=== PATIENT | female | born 1945 | race Caucasian/White ===

== ENCOUNTER → 2018-05-14 | Outpatient (CLI) | payer OTHER ==
[~2018-05-14] MED LIST: ARC10 PO; ATV/1 PO; BUPR300T43 PO; CLOP1TAB15 PO; CRG625 PO; CYCL10TA6 PO; FLUO40CA8 PO; GABA-113 PO; HYDR-4079 PO; INSU3INJ3 SQ; LATA0.5S OP; LEVO75TA5 PO; LPT40 OR; NTRGSL/4 UT; NVLGI/PEN SQ; PANT40TA2 PO; PROAIR INH
[2018-05-14 15:44] LABS: ALBUMIN 3.9 gm/dl (3.4-5.0); BLOOD UREA NITROGEN 22 mg/dl (7-18); CALCIUM 8.7 mg/dl (8.5-10.1); CARBON DIOXIDE 24 mmol/L (21-32); CREATININE 1.62 mg/dl (0.60-1.20); GLUCOSE 224 mg/dl (70-99); PHOSPHORUS 3.2 mg/dl (2.5-4.9); POTASSIUM 3.9 mmol/L (3.5-5.1); SODIUM 136 mmol/L (136-145)
[2018-05-19 13:29] LABS: ANA SCREEN TC 249X POSITIVE (NEGATIVE); COMPLEMENT C4** TC 44982E 32 MG/DL (15-57)
[2018-05-20 10:14] LABS: ANA TITER > OR = 1:1280 TITER (<1:40)
== END | disposition home or self-care (01) ==
LOC: C.LAB1850 13:27
PROVIDERS: ATTEND Internal Medicine Nephrology
DX: N17.9 Acute kidney failure, unspecified (principal); E55.9 Vitamin D deficiency, unspecified

== ENCOUNTER 2018-12-21 14:21 | Inpatient (IN) ==
[2018-12-21] MEDS ORDERED: HEPARIN 25000 UNIT/500 ML D5W IV ONE (14:28)
[2018-12-21] MEDS ORDERED: NITROGLYCERIN SL 0.4 MG/TAB TAB SL STA (15:27)
[2018-12-21] MEDS ORDERED: ACETAMINOPHEN 325 MG TAB PO PRN (15:27)
[2018-12-21] MEDS ORDERED: DEXTROSE 50% 50 ML SYRINGE IV PRN (15:27)
[2018-12-21] MEDS ORDERED: GLUCOSE 40% GEL 15 GM TUBE PO PRN (15:27)
[2018-12-21] MEDS ORDERED: GLUCAGON FOR INJ 1 MG VIAL SQ PRN (15:27)
[2018-12-21] MEDS ORDERED: GLUCOSE 10 TABS/TUBE PO PRN (15:27)
[2018-12-21] MEDS ORDERED: CARBOHYDRATES FOR HYPOGLYCEMIA PO PRN (15:27)
[2018-12-21] MEDS ORDERED: PHARMACY GLYCEMIC MGMT CONSULT PRN (15:40)
--- NOTE | 2018-12-21 15:44 | History & Physical Report ---
Date of Service December 21, 2018 Assessment & Plan (1) Chest pain: Has been ongoing for several weeks without clear exacerbating or ameliorating factors. Did not attempt to take nitroglycerin at home. - Continue aspirin, Plavix, and statin - Continue heparin gtt until next troponin. - If negative, can stop heparin gtt - Cardiology consult given her significant CAD history - BP is currently only 100/60 with HR in the 50 range - Hold beta-merlin at this time (2) Dizziness: Episode of palpitations, dizziness, and a fall when chest pain was severe on 12/20. Concern for arrhythmia given her known CAD. - Telemetry - Cardiology consult as above (3) CAD (coronary artery disease): S/p 6 caths with 3 stents. Last in 2015. - Continue ASA, Plavix, statin - Plan as above (4) Diabetes: Per , baseline blood sugars are ~200. - Continue long-acting with slight reduction for any need for NPO - Sliding scale insulin - Glycemic pharmacy consult - A1c in the AM - Continue gabapentin (5) Hypothyroidism: TSH was 2.7 in 07/2017. No signs/symptoms of hypo-/hyperthyroidism. - Continue home Synthroid 100 mcg (6) Anxiety: No current anxiety symptoms. - Continue home meds (7) Alzheimer disease: Mild per patient. - Continue home donepezil (8) DVT prophylaxis: On heparin gtt for unstable angina - If stopped, will consider Lovenox for DVT ppx History of Present Illness Primary Care Provider: Rani Curtis 73yo F w/ hx CAD (s/p 3 stents, last in 2015) who presents with history consi stent with unstable angina. Per patient, has been having chest pain which she describes as a heaviness in the right substernal area with radiation up to the jaw. With the chest pain she reports nausea and diaphoresis. The pain has been intermittent over the last few weeks. Each time it comes on and lasts for approximately 1 hour and gradually fades away. She denies any exacerbating or ameliorating factors, having forgotten that she has nitroglycerin she has not taken any in an attempt to relieve the pain. She denies that exertion worsens the pain or that rest improves the pain. On Thursday afternoon, she reports sudden onset of a particularly severe episode of the chest pain, rating it at 10/10. She also felt lightheaded with this chest pain, and when she stood up to check her blood pressure she got so dizzy that she fell down. She reports striking her head, but denies loss of consciousness. She reports possible palpitations around this time as well, though she is not certain. At present she rates her chest pain is a 34/10. She denies fevers, chills, abdominal pain, nausea, vomiting, diaphoresis, or other symptoms at this time. Allergies Allergy/AdvReac Type Severity Reaction Status Date / Time Cephalosporins Allergy Intermediate RASH Verified 12/21/18 15:36 paroxetine Allergy Intermediate RASH Verified 12/21/18 15:36 Penicillins Allergy Intermediate RASH Verified 12/21/18 15:36 latex Allergy Mild SWELLING Verified 05/07/16 08:23 alendronate sodium Allergy Unknown RASH Verified 05/07/16 08:23 Benzodiazepines Allergy Unknown ATIVAN IS Verified 05/07/16 08:23 OK guaifenesin Allergy Unknown Unknown Verified 12/21/18 15:36 imipramine Allergy Unknown Unknown Verified 12/21/18 15:36 Macrolide Antibiotics Allergy Unknown ` Verified 05/07/16 08:23 phenylephrine Allergy Unknown Unknown Verified 12/21/18 15:36 phenylpropanolamine Allergy Unknown Unknown Verified 12/21/18 15:36 protirelin Allergy Unknown Unknown Verified 12/21/18 15:36 trazodone Allergy Unknown NIGHTMARES Verified 05/07/16 08:23 valsartan Allergy Unknown Unknown Verified 12/21/18 15:36 adhesive AdvReac Intermediate blisters Verified 12/21/18 15:36 on skin Sulfa (Sulfonamide AdvReac Mild VOMITING Verified 05/07/16 08:23 Antibiotics) Home Medications Home Medications Medication Instructions Recorded Confirmed Type LORAZEPAM (ATIVAN) 1 mg PO TID PRN #0 tab 11/08/12 History Gabapentin (Neurontin) 300 mg PO TID #0 cap 10/08/15 History Nitroglycerin (Nitrostat) 0.4 mg UT PRN #0 btl 10/08/15 History BUPROPION HCL (BUPROPION HCL XL) 1 tab PO HS #0 tab 05/07/16 History CYCLOBENZAPRINE HCL (FLEXERIL) 10 mg PO TID PRN #0 tab 05/07/16 History Clopidogrel (Plavix) 75 mg PO QAM #0 tab 05/07/16 History Donepezil HCl 10 mg PO DAILY #0 08/20/17 History FLUOXETINE HCL (PROZAC) 1 cap PO DAILY 30 Days #30 cap 08/20/17 History Hydrocodone/Acetaminophen 1 tab PO Q6 PRN #0 tab 08/20/17 History 10MG/325MG ([place] 10MG/325MG) Insulin Aspart (NOVOLOG FLEXPEN) 10 unit SUBCUT TIDM #0 08/20/17 History Insulin Detemir (Levemir Flextouch) 28 unit SUBCUT HS #0 08/20/17 History LATANOPROST (XALATAN 0.005% OPH 1 drp OPHTHALMIC (EYE) HS #2.5 ml 08/20/17 History NASIR) LEVOTHYROXINE SODIUM 100 mcg PO DAILY #0 08/20/17 History ATORVASTATIN (LIPITOR) 80 mg PO DAILY 12/21/18 History aspirin [Aspirin Low Dose] 81 mg PO DAILY 12/21/18 12/21/18 History Past Med/Surg History Medical History Alzheimer disease CAD (coronary artery disease) Chronic back pain Depression Diabetes Hypothyroidism Surgical History Stented coronary artery Family History Father Heart disease Brother Heart disease Mother Heart disease Social History Preferred Language: Malaysian Communication Ability: Effective Aircraft Pneudraulic Systems Mechanic Required: No Beliefs That Will Affect Care: None Current Living Situation: Spouse Other Information That Helps Us Care for You: No Feels Safe at Home: Yes Safety Concerns: Feels Safe At This Time Smoking Status: Never smoker Hx Alcohol Use: No Hx Substance Use: No Review of Systems Constitutional: + fatigue and + weakness; no fever, no chills and no sweats Eyes: no diplopia Ear, Nose, Mouth, Throat: no ear trauma, no nasal discharge and no dental pain Respiratory: no cough, no chest congestion and no dyspnea Cardiovascular: + chest pain; no dyspnea on exertion, no palpitations and no syncope Gastrointestinal: + nausea; no abdominal pain, no belching, no vomiting, no constipation, no diarrhea/loose stools, no blood in stools and no melena Musculoskeletal: no back pain, no joint pain and no muscle weakness Integumentary: no rash, no skin ulcer and no erythema Neurologic: + unsteadiness, + generalized weakness and + dizziness; no loss of sensation, no numbness and no paresthesia Psychiatric: no depression and no anxiety Endocrine: no fatigue, no polydipsia and no polyphagia Physical Exam Vital Signs (Past 24 Hours): Last Vital Signs Temp 36.8 C 12/21/18 14:52 Pulse 53 L 12/21/18 14:52 Resp 16 12/21/18 14:52 BP 105/57 L 12/21/18 14:52 Pulse Ox 93 12/21/18 14:52 Constitutional: WD/WN, vitals as above Eyes: EOM intact bilaterally; no conjunctival abnormality ENMT: external ear and nose normal, oropharynx normal Neck: trachea midline, no thyromegaly normal visual inspection Respiratory: normal respiratory effort, lungs clear to auscultation no respiratory distress Cardiovascular: RRR, no murmur, no edema Gastrointestinal (Abdomen): Inspection/Auscultation: abdomen normal to inspection; abdomen not distended Musculoskeletal: no cyanosis or clubbing, extremities motor strength 5/5 Skin: no rashes, warm and dry Neurologic: moves all extremities and awake Psychiatric: Orientation: alert, oriented to person and cooperative
--- NOTE | 2018-12-21 16:39 | Cardiology Consultation ---
Date of Consultation December 21, 2018 Assessment & Plan (1) Chest pain: The patient's history of chest pain over the last several weeks is atypical for classic angina pectoris. Two troponins at [facility] were negative. A 3rd enzyme is pending at the time of this dictation. Review of her EKGs note left ventricle hypertrophy with repolarization changes. Agree with discontinuation of heparin if her pending troponin is negative. The patient does carry history of chronic atypical chest discomfort. (2) CAD (coronary artery disease): The patient had 3 drug-eluting stents placed in the right coronary artery at the time of an inferior myocardial infarction in September 2015. Her coronary disease has been quiescent on her current medical regimen since that time. (3) HTN (hypertension): She demonstrates adequate control of her blood pressure at this time. An echocardiogram performed in December 2015 noted mild left ventricular hypertrophy. This corresponds with her EKG findings. History of Present Illness Attending Physician: Ashwin Marie History of Present Illness Mrs. Ridley is a 73-year-old female transferred from the [facility] earlier today with a chest pain syndrome. This consultation was ordered to assist in her management. Of note, the patient is well known to me from the outpatient setting. Patient was in her usual state of health until approximately 2-3 weeks ago. She began to experience right-sided chest discomfort. She explains that it started as a "stabbing discomfort which then became a pressure like sensation. The patient explains that her discomfort would radiate across her chest to the left side. She had concurrent sweating of the palms. Patient explains that her symptoms would last for several hours. It always begins when she is at rest and will resolve spontaneously. Is been occurring at least once every day over this time frame. Yesterday, the patient became dizzy tripped over chair, and injured her forehead. She then presented to the [facility] for further care. Fortunately, 2 sets of troponins were negative. EKG showed sinus rhythm with left ventricle hypertrophy repolarization changes. The patient's cardiac history began in September 2015 when she presented with an inferior myocardial infarction. She had 3 stents placed in the proximal mid RCA. She was restudied in November 2015 and found to have patent stents. She does carry history of an atypical chest pain syndrome which has resulted in numerous hospitalizations. Currently, patient resting comfortably in bed without complaints. Past medical and surgical history 1. Coronary artery disease-see above 2. RCA PASTOR times 23 September 2015 3. Hypertension 4. Hypercholesterolemia 5. Atypical chest pain syndrome 6. Diabetes mellitus 7. Diabetic neuropathy 8. GERD 9. 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 Left breast carcinoma-age 34 12. Bilateral mastectomies 13. Cholecystectomy 14. Appendectomy 15. Hysterectomy 16. 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 Allergies Allergy/AdvReac Type Severity Reaction Status Date / Time Cephalosporins Allergy Intermediate RASH Verified 12/21/18 15:36 paroxetine Allergy Intermediate RASH Verified 12/21/18 15:36 Penicillins Allergy Intermediate RASH Verified 12/21/18 15:36 latex Allergy Mild SWELLING Verified 05/07/16 08:23 alendronate sodium Allergy Unknown RASH Verified 05/07/16 08:23 Benzodiazepines Allergy Unknown ATIVAN IS Verified 05/07/16 08:23 OK guaifenesin Allergy Unknown Unknown Verified 12/21/18 15:36 imipramine Allergy Unknown Unknown Verified 12/21/18 15:36 Macrolide Antibiotics Allergy Unknown ` Verified 05/07/16 08:23 phenylephrine Allergy Unknown Unknown Verified 12/21/18 15:36 phenylpropanolamine Allergy Unknown Unknown Verified 12/21/18 15:36 protirelin Allergy Unknown Unknown Verified 12/21/18 15:36 trazodone Allergy Unknown NIGHTMARES Verified 05/07/16 08:23 valsartan Allergy Unknown Unknown Verified 12/21/18 15:36 adhesive AdvReac Intermediate blisters Verified 12/21/18 15:36 on skin Sulfa (Sulfonamide AdvReac Mild VOMITING Verified 05/07/16 08:23 Antibiotics) Home Medications Home Medications Medication Instructions Recorded Confirmed Type LORAZEPAM (ATIVAN) 1 mg PO TID PRN #0 tab 11/08/12 History Gabapentin (Neurontin) 300 mg PO TID #0 cap 10/08/15 History Nitroglycerin (Nitrostat) 0.4 mg UT PRN #0 btl 10/08/15 History BUPROPION HCL (BUPROPION HCL XL) 1 tab PO HS #0 tab 05/07/16 History CYCLOBENZAPRINE HCL (FLEXERIL) 10 mg PO TID PRN #0 tab 05/07/16 History Clopidogrel (Plavix) 75 mg PO QAM #0 tab 05/07/16 History Donepezil HCl 10 mg PO DAILY #0 08/20/17 History FLUOXETINE HCL (PROZAC) 1 cap PO DAILY 30 Days #30 cap 08/20/17 History Hydrocodone/Acetaminophen 1 tab PO Q6 PRN #0 tab 08/20/17 History 10MG/325MG ([place] 10MG/325MG) Insulin Aspart (NOVOLOG FLEXPEN) 10 unit SUBCUT TIDM #0 08/20/17 History Insulin Detemir (Levemir Flextouch) 28 unit SUBCUT HS #0 08/20/17 History LATANOPROST (XALATAN 0.005% OPH 1 drp OPHTHALMIC (EYE) HS #2.5 ml 08/20/17 History NASIR) LEVOTHYROXINE SODIUM 100 mcg PO DAILY #0 08/20/17 History ATORVASTATIN (LIPITOR) 80 mg PO DAILY 12/21/18 History aspirin [Aspirin Low Dose] 81 mg PO DAILY 12/21/18 12/21/18 History Patient History Medical History Alzheimer disease CAD (coronary artery disease) Chronic back pain Depression Diabetes Hypothyroidism Surgical History Stented coronary artery Family History Father Heart disease Brother Heart disease Mother Heart disease Social History Preferred Language: Syriac Communication Ability: Effective Surveillance Specialist Required: No Beliefs That Will Affect Care: None Current Living Situation: Spouse Other Information That Helps Us Care for You: No Feels Safe at Home: Yes Safety Concerns: Feels Safe At This Time Smoking Status: Never smoker Hx Alcohol Use: No Hx Substance Use: No Physical Exam Vital Signs (Past 24 Hours): Last Vital Signs Temp 36.8 C 12/21/18 14:52 Pulse 53 L 12/21/18 14:52 Resp 16 12/21/18 14:52 BP 105/57 L 12/21/18 14:52 Pulse Ox 93 12/21/18 14:52 Physical Exam: In general this is a well-developed well-nourished white female in no acute distress. HEENT exam is negative. Neck is supple with full carotid upstrokes. There are no carotid bruits. Jugular venous pressure is flat at 90. There is no thyromegaly. Cardiovascular exam reveals a regular rhythm with a normal S1 and S2. No S3, S4, or murmurs are noted. Lungs are clear without rales, rhonchi, or wheezes. Abdomen is soft and nontender without bruits. Extremities reveal intact radial artery and posterior tibial pulses bilaterally. There is no peripheral edema. Results & Data Laboratory Results Laboratory studies are pending at the time of this dictation. Diagnostic Findings Review of the EKGs done at [facility] notes sinus rhythm and left ventricular hypertrophy with repolarization changes.
[2018-12-21 16:43] LABS: Partial Thromboplastin Ratio 1.8
[2018-12-21 16:47] LABS: Partial Thromboplastin Time 48.6 Seconds (21.0-31.0)
[2018-12-21] MEDS: Heparin IV Standard *NO* Bolus IV SCH ×3 (16:57→18:51)
[2018-12-21] MEDS: INSULIN ASPART 100 UNITS/ML 3 ML PEN SC SCH ×2 (17:20→20:55)
[2018-12-21] MEDS ORDERED: CYCLOBENZAPRINE HCL 10 MG TAB PO PRN (19:15)
[2018-12-21] MEDS: HYDROCODONE/ACETAMINOPHEN 10/325 TAB PO PRN (19:52)
[2018-12-21] MEDS: GABAPENTIN 300 MG CAP PO SCH (19:52)
[2018-12-21] MEDS: BuPROPion XL 300 MG TABCR PO SCH (19:52)
[2018-12-21] MEDS: LATANOPROST 0.005% OP SOLN 2.5 ML BTL OP SCH (19:53)
[2018-12-21] MEDS: INSULIN GLARGINE SOLOSTAR 100 UNITS/ML 3 ML PEN SC SCH (20:54)
[2018-12-21] MEDS ORDERED: INSULIN DETEMIR FLEXPEN/FLEX TOUCH 100 UNITS/ML 3ML SC SCH (21:00)
[2018-12-21] MEDS: NITROGLYCERIN SL 0.4 MG/TAB TAB SL PRN ×2 (23:05→23:10)
[2018-12-21] MEDS ORDERED: NITROGLYCERIN SL 0.4 MG/TAB TAB ONE (23:06)
[2018-12-21 23:47] LABS: Basophils # (auto) 0.03 K/uL (0-0.2); Basophils % (auto) 0.3 %; Eosinophils # (auto) 0.21 K/uL (0-0.5); Hematocrit (blood only) 31.8 % (37-47); Hemoglobin 10.4 g/dL (12.0-16.0); Immature Granulocytes # (auto) 0.01 K/uL (0.00-0.02); Immature Granulocytes % (auto) 0.1 %; Lymphocytes # (auto) 3.72 K/uL (1.2-3.4); Lymphocytes % (auto) 35.5 %; Mean Corpuscular Volume 90.6 fL (80-100); Mean Platelet Volume 8.8 fL (7.4-10.4); Monocytes # (auto) 0.63 K/uL (0.11-0.59); Neutrophils # (auto) 5.88 K/uL (1.4-6.5); Neutrophils % (auto) 56.1 %; Platelet Count 250 K/uL (130-400); RDW Coefficient of Variation 12.8 % (11.5-14.5); RDW Standard Deviation 42.3 fL (36.4-46.3); Red Blood Count 3.51 M/uL (4.2-5.4); White Blood Count 10.48 K/uL (4.8-10.8)
[2018-12-21] MEDS ORDERED: ONDANSETRON INJ 2 MG/ML 2 ML VIAL IV PRN (23:58)
[2018-12-22 00:02] LABS: BUN Creatinine Ratio 17.9 (10-20); Blood Urea Nitrogen 31 mg/dl (7-18); Calcium 8.2 mg/dl (8.5-10.1); Carbon Dioxide 28 mmol/L (21-32); Chloride 108 mmol/L (98-107); Creatinine Clr Calc Pharmacy 25.9 ml/min; Est GFR (African American) 34.1; Est GFR (Non-African American) 29.4; Glucose 102 mg/dl (70-99); Magnesium 2.1 mg/dl (1.8-2.4); Potassium 4.4 mmol/L (3.5-5.1); Sodium 140 mmol/L (136-145)
[2018-12-22 00:07] LABS: Phosphorus 4.2 mg/dl (2.5-4.9); Troponin I < 0.015 ng/ml (0-0.045)
[2018-12-22] MEDS ORDERED: NSS + 20MEQ KCL 20 MEQ/1,000 ML BAG IV SCH (00:15)
[2018-12-22 00:20] LABS: Mean Corpuscular Hgb Conc 32.7 g/dL (32-36)
[2018-12-22 00:38] LABS: INR 1.1 (0.9-1.1); Partial Thromboplastin Ratio 0.9; Partial Thromboplastin Time 25.7 Seconds (21.0-31.0); Prothrombin Time 10.9 Seconds (9.0-12.0)
[2018-12-22] MEDS ORDERED: Heparin IV Low Dose *NO* Bolus IV SCH (00:59)
[2018-12-22] MEDS ORDERED: HEPARIN SODIUM/DEXTROSE 25,000 UNITS/500 ML BAG IV SCH (01:30)
[2018-12-22] MEDS: HYDROCODONE/ACETAMINOPHEN 10/325 TAB PO PRN ×2 (03:39→16:40)
[2018-12-22] MEDS: LEVOTHYROXINE SODIUM 100 MCG TABLET PO SCH (05:20)
[2018-12-22 07:53] LABS: Hematocrit (blood only) 32.7 % (37-47); Hemoglobin 10.6 g/dL (12.0-16.0); Mean Corpuscular Hgb Conc 32.4 g/dL (32-36); Mean Corpuscular Volume 91.1 fL (80-100); Mean Platelet Volume 9.1 fL (7.4-10.4); Platelet Count 238 K/uL (130-400); RDW Coefficient of Variation 12.7 % (11.5-14.5); RDW Standard Deviation 42.5 fL (36.4-46.3); Red Blood Count 3.59 M/uL (4.2-5.4); White Blood Count 9.08 K/uL (4.8-10.8)
[2018-12-22] MEDS: ASPIRIN 81 MG ECTAB PO SCH (08:00)
[2018-12-22] MEDS: INSULIN ASPART 100 UNITS/ML 3 ML PEN SC SCH ×4 (08:00→20:53)
[2018-12-22] MEDS: ATORVASTATIN 40 MG TAB PO SCH (08:01)
[2018-12-22] MEDS: GABAPENTIN 300 MG CAP PO SCH ×3 (08:01→22:08)
[2018-12-22] MEDS: PARoxetine HCl 20 MG TAB PO SCH (08:01)
[2018-12-22] MEDS: CLOPIDOGREL BISULFATE 75 MG TAB PO SCH (08:02)
[2018-12-22 08:03] LABS: Partial Thromboplastin Ratio 1.3; Partial Thromboplastin Time 35.9 Seconds (21.0-31.0)
[2018-12-22 08:19] LABS: Estimated Average Glucose 143 mg/dl; Hemoglobin A1C 6.6 % (4.5-5.6)
[2018-12-22] MEDS ORDERED: HEPARIN IV BOLUS 4,000 UNITS in SYRINGE 0 ML IV ONE (08:30)
[2018-12-22 08:42] LABS: BUN Creatinine Ratio 19.5 (10-20); Calcium 7.9 mg/dl (8.5-10.1); Creatinine Clr Calc Pharmacy 29.9 ml/min; Est GFR (African American) 40.5; Magnesium 2.3 mg/dl (1.8-2.4)
--- NOTE | 2018-12-22 08:49 | Pharmacy Report ---
Pharmacy Glycemic Short Note 2 - Date of Service December 22, 2018 - Glycemic Short BSG Results (Last 24 hours): 12/21/18 12/21/18 12/21/18 15:54 20:36 23:34 Glucose 102 H POC Glucose 117 H 111 H 12/22/18 12/22/18 07:05 07:30 Glucose 137 H POC Glucose 136 H OUTPATIENT ANTIDIABETIC REGIMEN: * Levemir 28 units Q HS * Novolog 10 units w/ meals * A1c = 6.6% 12/22/18 The patient is currently receiving: * Basal insulin: Lantus 10 units x 1 last PM * Correctional Insulin: Novolog Correction per scale ACHS Goal Range: Low 100 mg/dL - High 140 mg/dL Correction Factor: 30 mg/dL/unit * Prandial insulin: Per carb ratio of 1 unit per 10 grams CHO consumed ASSESSMENT: * Patient admitted last evening for possible ACS * A reduced dose of Lantus was given last evening due to concerns pt may be NPO for procedure today. Patient currently has T2DM diet ordered. * Pt had requested use of Lantus this admission rather than the Levemir she is ordered as out-pt. She had told the [facility] last evening "Levemir did not work" * Fasting BSG 136 with 10 units Lantus on board. Will increase Lantus dose to ~ 80% of home dosage as a diet is ordered. Will add a parameter too this order to allow for half-dose if pt will be NPO for procedure * Novolog CF and CR are appropriate starting points. Will continue the same today and monitor BSG pattern PLAN FOR INPATIENT GLYCEMIC CONTROL: * Basal insulin * Lantus SQ HS per the followin units Q HS if not NPO, 10 units Q HS if NPO for upcoming procedure * Bolus insulin * NovoLog per scale ACHS or Q6hrs while NPO * Goal Range: Low 110 mg/dL - High 140 mg/dL * Correction Factor: 30 mg/dL/unit * Nutritional / Prandial insulin per carb ratio of 1 unit per 10 grams CHO consumed PLAN FOR DISCHARGE: * recent A1c shows good control with out-pt regimen. would be reasonable to resume her home regimen on discharge.
[2018-12-22] MEDS ORDERED: DONEPEZIL HCL 10 MG TAB PO SCH (09:00)
--- NOTE | 2018-12-22 12:41 | Cardiology Progress Note ---
Date of Service December 22, 2018 Assessment & Plan (1) Chest pain: The patient's description of chest discomfort is not cardiac in origin. She has had 2 undetectable troponin levels at our institution, and 2-troponins at an outside facility. Her EKG notes left ventricular hypertrophy with repo larization changes. Discussed with Dr. Marie. The heparin will be discontinued and she will undergo an echocardiogram and CT scan of the chest with contrast. (2) CAD (coronary artery disease): The patient had 3 drug-eluting stents placed in the right coronary artery at the time of an inferior myocardial infarction in September 2015. Her coronary disease has been quiescent on her current medical regimen. (3) HTN (hypertension): Adequate control on current regimen. Subjective The patient is currently resting comfortably without complaints. She did have an episode of chest discomfort overnight and her heparin was restarted. Troponin done concurrently was undetectable. Physical Exam Vital Signs (Past 24 Hours): Last Vital Signs Temp 36.7 C 12/22/18 10:51 Pulse 66 12/22/18 10:51 Resp 16 12/22/18 10:51 BP 124/66 12/22/18 10:51 Pulse Ox 92 12/22/18 10:51 Physical Exam: In general this is a well-developed well-nourished white female in no acute distress. HEENT exam is negative. Neck is supple with full carotid upstrokes. There are no carotid bruits. Jugular venous pressure is flat at 90. There is no thyromegaly. Cardiovascular exam reveals a regular rhythm with a normal S1 and S2. No S3, S4, or murmurs are noted. Lungs are clear without rales, rhonchi, or wheezes. Abdomen is soft and nontender without bruits. Extremities reveal intact radial artery and posterior tibial pulses bilaterally. There is no peripheral edema. Results & Data Laboratory Results Laboratory Results - last 24 hr 12/21/18 12/21/18 12/21/18 14:58 15:46 15:46 WBC RBC Hgb Hct MCV MCH MCHC RDW Std Deviation RDW Coeff of Matilda Plt Count MPV Immature Gran % (Auto) Neut % (Auto) Lymph % (Auto) [place] % (Auto) Eos % (Auto) Baso % (Auto) Immature Gran # (Auto) Neut # (Auto) Lymph # (Auto) [place] # (Auto) Eos # (Auto) Baso # (Auto) PT INR APTT 48.6 H* PTT Ratio 1.8 Sodium Potassium Chloride Carbon Dioxide Anion Gap BUN Creatinine Est Cr Clr Drug Dosing Est GFR ( Amer) Est GFR (Non-Af Amer) BUN/Creatinine Ratio Glucose POC Glucose Estimat Average Glucose Hemoglobin A1c Calcium Phosphorus Magnesium Troponin I < 0.015 Hepatitis C Ab Screen Neg 12/21/18 12/21/18 12/21/18 15:54 20:36 23:34 WBC 10.48 RBC 3.51 L Hgb 10.4 L Hct 31.8 L MCV 90.6 MCH 29.6 MCHC 32.7 RDW Std Deviation 42.3 RDW Coeff of Mtailda 12.8 Plt Count 250 MPV 8.8 Immature Gran % (Auto) 0.1 Neut % (Auto) 56.1 Lymph % (Auto) 35.5 [place] % (Auto) 6.0 Eos % (Auto) 2.0 Baso % (Auto) 0.3 Immature Gran # (Auto) 0.01 Neut # (Auto) 5.88 Lymph # (Auto) 3.72 H [place] # (Auto) 0.63 H Eos # (Auto) 0.21 Baso # (Auto) 0.03 PT INR APTT PTT Ratio Sodium Potassium Chloride Carbon Dioxide Anion Gap BUN Creatinine Est Cr Clr Drug Dosing Est GFR ( Amer) Est GFR (Non-Af Amer) BUN/Creatinine Ratio Glucose POC Glucose 117 H 111 H Estimat Average Glucose Hemoglobin A1c Calcium Phosphorus Magnesium Troponin I Hepatitis C Ab Screen 12/21/18 12/22/18 12/22/18 23:34 00:14 07:05 WBC RBC Hgb Hct MCV MCH MCHC RDW Std Deviation RDW Coeff of Matilda Plt Count MPV Immature Gran % (Auto) Neut % (Auto) Lymph % (Auto) [place] % (Auto) Eos % (Auto) Baso % (Auto) Immature Gran # (Auto) Neut # (Auto) Lymph # (Auto) [place] # (Auto) Eos # (Auto) Baso # (Auto) PT 10.9 INR 1.1 APTT 25.7 PTT Ratio 0.9 Sodium 140 Potassium 4.4 Chloride 108 H Carbon Dioxide 28 Anion Gap 4.0 BUN 31 H Creatinine 1.72 H Est Cr Clr Drug Dosing 25.9 Est GFR ( Amer) 34.1 Est GFR (Non-Af Amer) 29.4 BUN/Creatinine Ratio 17.9 Glucose 102 H POC Glucose 136 H Estimat Average Glucose Hemoglobin A1c Calcium 8.2 L Phosphorus 4.2 Magnesium 2.1 Troponin I < 0.015 Hepatitis C Ab Screen 12/22/18 12/22/18 12/22/18 07:30 07:30 07:30 WBC 9.08 RBC 3.59 L Hgb 10.6 L Hct 32.7 L MCV 91.1 MCH 29.5 MCHC 32.4 RDW Std Deviation 42.5 RDW Coeff of Matilda 12.7 Plt Count 238 MPV 9.1 Immature Gran % (Auto) Neut % (Auto) Lymph % (Auto) [place] % (Auto) Eos % (Auto) Baso % (Auto) Immature Gran # (Auto) Neut # (Auto) Lymph # (Auto) [place] # (Auto) Eos # (Auto) Baso # (Auto) PT INR APTT PTT Ratio Sodium 140 Potassium 5.0 Chloride 110 H Carbon Dioxide 26 Anion Gap 4.0 BUN 29 H Creatinine 1.49 H Est Cr Clr Drug Dosing 29.9 Est GFR ( Amer) 40.5 Est GFR (Non-Af Amer) 35.0 BUN/Creatinine Ratio 19.5 Glucose 137 H POC Glucose Estimat Average Glucose 143 Hemoglobin A1c 6.6 H Calcium 7.9 L Phosphorus Magnesium 2.3 Troponin I Hepatitis C Ab Screen 12/22/18 12/22/18 07:30 10:55 WBC RBC Hgb Hct MCV MCH MCHC RDW Std Deviation RDW Coeff of Matilda Plt Count MPV Immature Gran % (Auto) Neut % (Auto) Lymph % (Auto) [place] % (Auto) Eos % (Auto) Baso % (Auto) Immature Gran # (Auto) Neut # (Auto) Lymph # (Auto) [place] # (Auto) Eos # (Auto) Baso # (Auto) PT INR APTT 35.9 H PTT Ratio 1.3 Sodium Potassium Chloride Carbon Dioxide Anion Gap BUN Creatinine Est Cr Clr Drug Dosing Est GFR ( Amer) Est GFR (Non-Af Amer) BUN/Creatinine Ratio Glucose POC Glucose 196 H Estimat Average Glucose Hemoglobin A1c Calcium Phosphorus Magnesium Troponin I Hepatitis C Ab Screen Diagnostic Findings EKG shows normal sinus rhythm and left ventricular hypertrophy with repolarization changes. 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
[2018-12-22 15:46] LABS: BUN Creatinine Ratio 18.4 (10-20); Blood Urea Nitrogen 25 mg/dl (7-18); C Reactive Protein < 0.29 mg/dl (0-0.29); Calcium 8.1 mg/dl (8.5-10.1); Carbon Dioxide 26 mmol/L (21-32); Chloride 115 mmol/L (98-107); Creatinine Clr Calc Pharmacy 32.8 ml/min; Est GFR (African American) 45.3; Est GFR (Non-African American) 39.1; Glucose 67 mg/dl (70-99); Potassium 4.7 mmol/L (3.5-5.1); Sodium 144 mmol/L (136-145)
[2018-12-22 15:48] LABS: D Dimer 350 ug/L FEU (0-500)
[2018-12-22 16:11] LABS: Partial Thromboplastin Ratio 1.8
[2018-12-22 16:33] LABS: Partial Thromboplastin Time 49.1 Seconds (21.0-31.0)
[2018-12-22] MEDS ORDERED: OPTIRAY 320 125ml IV PRN (18:03)
--- NOTE | 2018-12-22 18:27 | CT Scan Report ---
CHEST CTA for PULMONARY ARTERIES CT DOSE: 390.10 mGy.cm HISTORY: R sided chest pain; eval for PE TECHNIQUE: Multiaxial CT images of the chest were performed following the intravenous administration of contrast to evaluate the pulmonary arteries. Maximal intensity projection images were also obtaine d. A dose lowering technique was utilized adhering to the principles of ALARA. COMPARISON STUDY: Outside hospital chest CT 12/20/2017. FINDINGS: There is high-grade stenosis versus focal occlusion of the proximal left subclavian artery. This is suboptimally evaluated due to the artifact at this location. However, there is reconstitutio n of flow at the level of the left vertebral artery. Therefore, this raises the possibility of a subc lavian steal. Normal caliber thoracic aorta with no evidence for dissection. Dense coronary artery ca lcifications. The heart is mildly enlarged. Trace left pleural effusion. The majority of the bilatera l lower lobe subsegmental pulmonary arteries are nondiagnostic due to the motion artifact. Otherwise, the remaining pulmonary arteries show no filling defects to suggest pulmonary embolus. Partially vis ualized posterior fusion hardware within the lower thoracic spine. No suspicious lytic or blastic oss eous lesions. The visualized liver and spleen are unremarkable. No significant mediastinal or hilar l ymphadenopathy. No pneumothorax. The central airways are patent. Mild emphysema. A 7 mm groundglass d ensity within the right upper lobe posteriorly on image 149. This is new from the prior study and may represent mild dependent change or a small focus of inflammatory/infectious change. Bilateral lower lobe linear densities likely represent subsegmental atelectasis.. IMPRESSION: 1. No evidence for pulmonary blood. 2. Bibasilar linear densities favor subsegmental atelectasis. As also a 7 mm groundglass density with in the right upper lobe posteriorly which may represent mild dependent change or a small focus of inf lammatory/infectious change. This is new from the prior study. 3. Trace left pleural effusion. 4. There is high-grade stenosis versus focal occlusion of the proximal left subclavian artery. This i s suboptimally evaluated due to the artifact at this location. However, there is reconstitution of fl ow at the level of the left vertebral artery. Therefore, this raises the possibility of a subclavian steal. Electronically signed by: Elias Haro M.D. 12/22/2018 6:25 PM
[2018-12-22] MEDS: ACETYLCYSTEINE 600 MG CAP PO SCH ×2 (18:58→20:50)
[2018-12-22] MEDS: BuPROPion XL 300 MG TABCR PO SCH (20:49)
[2018-12-22] MEDS: LATANOPROST 0.005% OP SOLN 2.5 ML BTL OP SCH (20:50)
--- NOTE | 2018-12-22 20:52 | Hospitalist Progress Note ---
Date of Service December 22, 2018 Assessment & Plan (1) Chest pain: Atypical chest pain x 48 hours. Numerous troponins all negative despite the duration of her pain which argues against CAD/ischemic pain. Seen by cardiology, Dr. Peacock, and he too feels this is not cardiac pain. After hydration today we obtained CTA chest -- no PEs seen. No large area of pneumonia on right. No acute rib fractures. Subclavian artery stenosis seen but unlikely the cause of right-sided symptoms. Uncertain of exact etiology of pain but favor musculoskeletal cause -- perhaps referred pain from back given her significant back pain? No evidence of unstable angina or PE -- stop heparin drip. Sed rate and crp both normal. Present on Admission?: Yes (2) Dizziness: May have been medication related as apparently she took a muscle relaxer at some point earlier in the week. Vertebral-basilar insufficiency possible due to her subclavian artery stenosis but felt to be less likely. Her dizziness has improved/resolved either way. Present on Admission?: Yes (3) CAD (coronary artery disease): Troponins all negative. EKGs with chronic ST changes. Awaiting echo. Chest pain unlikely to be coronary-related. See discussion above. Appreciate cardiology consult. Cont asa, plavix and statin. Uncertain why she is not on beta merlin. Present on Admission?: Yes (4) DM type 2 (diabetes mellitus, type 2): glycemic control adequate at this time Present on Admission?: Yes (5) HTN (hypertension): she does not appear to be on meds at home for this. if additional BP control is needed -- would add BB or [place]. Present on Admission?: Yes (6) HLD (hyperlipidemia): cont statin Present on Admission?: Yes (7) Hypothyroidism: cont synthroid TSH at outside hospital wnl Present on Admission?: Yes (8) GERD (gastroesophageal reflux disease): no symptoms at this time chest pain very unlikely to be GI in origin Present on Admission?: Yes (9) Anxiety: cont ativan prn Present on Admission?: Yes (10) Back pain: ordered K-pad heating cont her usual narcotics prn poor NSAID candidate because of CKD Present on Admission?: Yes (11) Subclavian artery stenosis, left: ordered dopplers for more information. consult vascular surgery. cont statin, asa, plavix. is chronic left arm pain due to subclavian steal? referred pain from c-spine? (12) Chronic kidney disease, stage 3a: Gave additional hydration today along with mucomyst x 4 doses for renal protection in setting of CTA chest. BMP in am. Cr this afternoon 1.3. Present on Admission?: Yes (13) DVT prophylaxis: was on systemic heparin but stopping such if she remains hospitalized beyond tomorrow then add heparin SC will order PT, OT evals Subjective patient continues to have intermittent right sided chest discomfort. she gets the pain at rest. nitro helps the pain. her other main complaint is that of back pain -- upper and lower portions of back. takes chronic narcotics at home for this. denies any dyspnea. ?some pleuritic component to pain? mentions she had dizziness in the midst of taking a muscle relaxer at home a few days ago. denies dizziness or presyncopal spells on daily basis. does get pain in left upper arm with activities. Constitutional: no fever Respiratory: + cough (chronic) Cardiovascular: as per Subjective / HPI and + chest pain; no radiating jaw, neck or arm pain, no orthopnea, no paroxysmal nocturnal dyspnea and no edema Gastrointestinal: no abdominal pain, no nausea and no vomiting Physical Exam Vital Signs (Past 24 Hours): Last Vital Signs Temp 36.8 C 12/22/18 19:32 Pulse 71 12/22/18 19:32 Resp 18 12/22/18 19:32 BP 153/61 H 12/22/18 19:32 Pulse Ox 90 12/22/18 19:32 Constitutional: well developed, well nourished and average body habitus; no acute distress and not ill appearing ENMT: external ear and nose normal, oropharynx normal Respiratory: normal respiratory effort, lungs clear to auscultation Cardiovascular: Rate/Rhythm: regular rate and regular rhythm Heart Sounds: normal S1 and normal S2; no murmur Vessels: posterior tibial pulses present and dorsalis pedis pulses present; no JVD Extremities: no edema radial pulses - both 1+ or less b/l Chest (Breasts): Additional Comments: no reproducible chest wall pain in any location Gastrointestinal (Abdomen): normal bowel sounds, soft, nontender, no hepatosplenomegaly Psychiatric: A+Ox3, euthymic affect Results & Data Laboratory Results Laboratory Results - last 24 hr 12/21/18 12/21/18 12/22/18 23:34 23:34 00:14 WBC 10.48 RBC 3.51 L Hgb 10.4 L Hct 31.8 L MCV 90.6 MCH 29.6 MCHC 32.7 RDW Std Deviation 42.3 RDW Coeff of Matilda 12.8 Plt Count 250 MPV 8.8 Immature Gran % (Auto) 0.1 Neut % (Auto) 56.1 Lymph % (Auto) 35.5 Powell % (Auto) 6.0 Eos % (Auto) 2.0 Baso % (Auto) 0.3 Immature Gran # (Auto) 0.01 Neut # (Auto) 5.88 Lymph # (Auto) 3.72 H Powell # (Auto) 0.63 H Eos # (Auto) 0.21 Baso # (Auto) 0.03 ESR PT 10.9 INR 1.1 APTT 25.7 PTT Ratio 0.9 D-Dimer Sodium 140 Potassium 4.4 Chloride 108 H Carbon Dioxide 28 Anion Gap 4.0 BUN 31 H Creatinine 1.72 H Est Cr Clr Drug Dosing 25.9 Est GFR ( Amer) 34.1 Est GFR (Non-Af Amer) 29.4 BUN/Creatinine Ratio 17.9 Glucose 102 H POC Glucose Estimat Average Glucose Hemoglobin A1c Calcium 8.2 L Phosphorus 4.2 Magnesium 2.1 Troponin I < 0.015 C-Reactive Protein 12/22/18 12/22/18 12/22/18 07:05 07:30 07:30 WBC 9.08 RBC 3.59 L Hgb 10.6 L Hct 32.7 L MCV 91.1 MCH 29.5 MCHC 32.4 RDW Std Deviation 42.5 RDW Coeff of Matilda 12.7 Plt Count 238 MPV 9.1 Immature Gran % (Auto) Neut % (Auto) Lymph % (Auto) [place] % (Auto) Eos % (Auto) Baso % (Auto) Immature Gran # (Auto) Neut # (Auto) Lymph # (Auto) [place] # (Auto) Eos # (Auto) Baso # (Auto) ESR PT INR APTT PTT Ratio D-Dimer Sodium 140 Potassium 5.0 Chloride 110 H Carbon Dioxide 26 Anion Gap 4.0 BUN 29 H Creatinine 1.49 H Est Cr Clr Drug Dosing 29.9 Est GFR ( Amer) 40.5 Est GFR (Non-Af Amer) 35.0 BUN/Creatinine Ratio 19.5 Glucose 137 H POC Glucose 136 H Estimat Average Glucose Hemoglobin A1c Calcium 7.9 L Phosphorus Magnesium 2.3 Troponin I C-Reactive Protein 12/22/18 12/22/18 12/22/18 07:30 07:30 10:55 WBC RBC Hgb Hct MCV MCH MCHC RDW Std Deviation RDW Coeff of Matilda Plt Count MPV Immature Gran % (Auto) Neut % (Auto) Lymph % (Auto) Powell % (Auto) Eos % (Auto) Baso % (Auto) Immature Gran # (Auto) Neut # (Auto) Lymph # (Auto) Powell # (Auto) Eos # (Auto) Baso # (Auto) ESR PT INR APTT 35.9 H PTT Ratio 1.3 D-Dimer Sodium Potassium Chloride Carbon Dioxide Anion Gap BUN Creatinine Est Cr Clr Drug Dosing Est GFR ( Amer) Est GFR (Non-Af Amer) BUN/Creatinine Ratio Glucose POC Glucose 196 H Estimat Average Glucose 143 Hemoglobin A1c 6.6 H Calcium Phosphorus Magnesium Troponin I C-Reactive Protein 12/22/18 12/22/18 12/22/18 15:12 15:12 15:13 WBC RBC Hgb Hct MCV MCH MCHC RDW Std Deviation RDW Coeff of Matilda Plt Count MPV Immature Gran % (Auto) Neut % (Auto) Lymph % (Auto) [place] % (Auto) Eos % (Auto) Baso % (Auto) Immature Gran # (Auto) Neut # (Auto) Lymph # (Auto) [place] # (Auto) Eos # (Auto) Baso # (Auto) ESR 23 H PT INR APTT 49.1 H* PTT Ratio 1.8 D-Dimer 350 Sodium Potassium Chloride Carbon Dioxide Anion Gap BUN Creatinine Est Cr Clr Drug Dosing Est GFR ( Amer) Est GFR (Non-Af Amer) BUN/Creatinine Ratio Glucose POC Glucose Estimat Average Glucose Hemoglobin A1c Calcium Phosphorus Magnesium Troponin I C-Reactive Protein 12/22/18 12/22/18 12/22/18 15:13 15:13 16:10 WBC RBC Hgb Hct MCV MCH MCHC RDW Std Deviation RDW Coeff of Matilda Plt Count MPV Immature Gran % (Auto) Neut % (Auto) Lymph % (Auto) [place] % (Auto) Eos % (Auto) Baso % (Auto) Immature Gran # (Auto) Neut # (Auto) Lymph # (Auto) [place] # (Auto) Eos # (Auto) Baso # (Auto) ESR PT INR APTT PTT Ratio D-Dimer Sodium 144 Potassium 4.7 Chloride 115 H Carbon Dioxide 26 Anion Gap 3.0 BUN 25 H Creatinine 1.36 H Est Cr Clr Drug Dosing 32.8 Est GFR ( Amer) 45.3 Est GFR (Non-Af Amer) 39.1 BUN/Creatinine Ratio 18.4 Glucose 67 L POC Glucose 71 Estimat Average Glucose Hemoglobin A1c Calcium 8.1 L Phosphorus Magnesium Troponin I C-Reactive Protein Cancelled < 0.29 12/22/18 20:03 WBC RBC Hgb Hct MCV MCH MCHC RDW Std Deviation RDW Coeff of Matilda Plt Count MPV Immature Gran % (Auto) Neut % (Auto) Lymph % (Auto) [place] % (Auto) Eos % (Auto) Baso % (Auto) Immature Gran # (Auto) Neut # (Auto) Lymph # (Auto) [place] # (Auto) Eos # (Auto) Baso # (Auto) ESR PT INR APTT PTT Ratio D-Dimer Sodium Potassium Chloride Carbon Dioxide Anion Gap BUN Creatinine Est Cr Clr Drug Dosing Est GFR ( Amer) Est GFR (Non-Af Amer) BUN/Creatinine Ratio Glucose POC Glucose 152 H Estimat Average Glucose Hemoglobin A1c Calcium Phosphorus Magnesium Troponin I C-Reactive Protein (1) Chest pain Chest pain type: unspecified Qualified Code(s): R07.9 - Chest pain, unspecified (2) CAD (coronary artery disease) Coronary Disease-Associated Artery/Lesion type: [place] artery [place] vs. transplanted heart: [place] heart Associated angina: without angina Qualified Code(s): I25.10 - Atherosclerotic heart disease of [place] coronary artery without angina pectoris (3) DM type 2 (diabetes mellitus, type 2) Diabetes mellitus assisted insulin use: with terminal superintendent use Diabetes mellitus complication status: with kidney complications Diabetes mellitus complication detail: with chronic kidney disease Chronic kidney disease stage: stage 3 (moderate) Qualified Code(s): E11.22 - Type 2 diabetes mellitus with diabetic chronic kidney disease; N18.3 - Chronic kidney disease, stage 3 (moderate); Z79.4 - group home (current) use of insulin (4) HTN (hypertension) Hypertension type: essential hypertension Qualified Code(s): I10 - Essential (primary) hypertension (5) HLD (hyperlipidemia) Hyperlipidemia type: mixed hyperlipidemia Qualified Code(s): E78.2 - Mixed hyperlipidemia (6) Hypothyroidism Hypothyroidism type: acquired Qualified Code(s): E03.9 - Hypothyroidism, unspecified (7) GERD (gastroesophageal reflux disease) Esophagitis presence: esophagitis presence not specified Qualified Code(s): K21.9 - Gastro-esophageal reflux disease without esophagitis (8) Back pain Back pain location: thoracic back pain Chronicity: chronic Back pain laterality: midline Qualified Code(s): M54.6 - Pain in thoracic spine; G89.29 - Other chronic pain
[2018-12-22] MEDS: INSULIN GLARGINE SOLOSTAR 100 UNITS/ML 3 ML PEN SC SCH (20:53)
[2018-12-22] MEDS: LORazepam 1 MG TAB PO PRN (22:07)
[2018-12-22] MEDS: DONEPEZIL HCL 10 MG TAB PO SCH (22:08)
--- NOTE | 2018-12-22 22:22 | Ultrasound Report ---
CAROTID ARTERY ULTRASOUND CLINICAL HISTORY: ?subclavian steal; left-sided subclavian stenosis COMPARISON STUDY: Chest CT December 22, 2018. TECHNIQUE: Real-time, grayscale, and color Doppler sonography of the carotid and vertebral arteries w as performed. Images were viewed in the transverse and longitudinal planes. FINDINGS: There is extensive atherosclerotic plaque present within the proximal right internal carotid artery. Velocity measurements are listed below. COMMON CAROTID PEAK SYSTOLIC VELOCITY (CM/S): RIGHT 71 LEFT 115 ICA PEAK SYSTOLIC VELOCITY (CM/S): RIGHT 422 LEFT 193 Systolic ratio between the right internal to common carotid artery is elevated. Antegrade flow is seen in the vertebral arteries. Velocity within the proximal left subclavian artery was mildly elevated at 200 cm/s The external carotid arteries are patent however the peak systolic v elocity within the right external carotid artery is markedly elevated at 508 cm/s. Peak systolic [place] within the left external carotid artery is moderately elevated at 255 cm/s. Blood pressures were not obtained in this patient due to IV. IMPRESSION: 1. Findings suggestive of severe stenosis within the proximal right internal carotid artery and possi neelam the distal right common carotid artery as well. 2. Findings suggestive of 50-69% stenosis of the proximal left internal carotid artery. 3. Antegrade flow within the bilateral vertebral arteries without sonographic evidence of subclavian steal. 4. Stenoses of the bilateral external carotid arteries, more severe on the right. 5. Mildly elevated velocity within the proximal left subclavian artery. Electronically signed by: Marcelino Prieto M.D. 12/22/2018 10:21 PM
[2018-12-23] MEDS: HYDROCODONE/ACETAMINOPHEN 10/325 TAB PO PRN ×3 (00:14→20:11)
[2018-12-23] MEDS: LEVOTHYROXINE SODIUM 100 MCG TABLET PO SCH (05:48)
[2018-12-23 06:14] LABS: BUN Creatinine Ratio 18.5 (10-20); Calcium 8.3 mg/dl (8.5-10.1); Creatinine Clr Calc Pharmacy 38.4 ml/min; Est GFR (African American) 54.9; Est GFR (Non-African American) 47.3; Potassium 4.5 mmol/L (3.5-5.1)
[2018-12-23] MEDS: ATORVASTATIN 40 MG TAB PO SCH (08:43)
[2018-12-23] MEDS: GABAPENTIN 300 MG CAP PO SCH ×3 (08:44→20:13)
[2018-12-23] MEDS: CLOPIDOGREL BISULFATE 75 MG TAB PO SCH (08:44)
[2018-12-23] MEDS: PARoxetine HCl 20 MG TAB PO SCH (08:44)
[2018-12-23] MEDS: ACETYLCYSTEINE 600 MG CAP PO SCH ×2 (08:45→20:13)
[2018-12-23] MEDS: ASPIRIN 81 MG ECTAB PO SCH (08:45)
[2018-12-23] MEDS: INSULIN ASPART 100 UNITS/ML 3 ML PEN SC SCH ×4 (08:46→20:14)
--- NOTE | 2018-12-23 13:09 | Consultation ---
Date of Consultation December 23, 2018 Assessment & Plan (1) Subclavian artery stenosis, left: Other than the CTA finding which may be an artifact, this patient does not have any symptoms of a significant left subclavian artery stenosis. She does have asymptomatic carotid disease for which we will see her again in 6 months for follow-up carotid ultrasound. Thank you very much for letting us participate in the care of this patient. History of Present Illness Reason for Consultation: Left subclavian artery stenosis Attending Physician: Melissa Ashby MD History of Present Illness This is a 73-year-old female who home. She had one episode of lightheadedness resulting in a fall of her chair. During her hospital stay here she had a CTA of her chest which showed a suggestion of a left subclavian artery stenoses. She denies any claudication of her upper extremities. She does have pain in her left shoulder with movement and overhead. She is right-handed. She is able to do things with her left hand without difficulty. She denies any claudication when walking. She denies any symptoms of cerebrovascular insufficiency. She also denies any symptoms of vertebrobasilar symptoms. Allergies Allergy/AdvReac Type Severity Reaction Status Date / Time Cephalosporins Allergy Intermediate RASH Verified 12/21/18 15:36 paroxetine Allergy Intermediate RASH Verified 12/21/18 15:36 Penicillins Allergy Intermediate RASH Verified 12/21/18 15:36 latex Allergy Mild SWELLING Verified 05/07/16 08:23 alendronate sodium Allergy Unknown RASH Verified 05/07/16 08:23 Benzodiazepines Allergy Unknown ATIVAN IS Verified 05/07/16 08:23 OK guaifenesin Allergy Unknown Unknown Verified 12/21/18 15:36 imipramine Allergy Unknown Unknown Verified 12/21/18 15:36 Macrolide Antibiotics Allergy Unknown ` Verified 05/07/16 08:23 phenylephrine Allergy Unknown Unknown Verified 12/21/18 15:36 phenylpropanolamine Allergy Unknown Unknown Verified 12/21/18 15:36 protirelin Allergy Unknown Unknown Verified 12/21/18 15:36 trazodone Allergy Unknown NIGHTMARES Verified 05/07/16 08:23 valsartan Allergy Unknown Unknown Verified 12/21/18 15:36 orange Allergy Verified 12/22/18 08:52 strawberry Allergy Verified 12/22/18 08:52 adhesive AdvReac Intermediate blisters Verified 12/21/18 15:36 on skin Sulfa (Sulfonamide AdvReac Mild VOMITING Verified 05/07/16 08:23 Antibiotics) Home Medications Home Medications Medication Instructions Recorded Confirmed Type LORAZEPAM (ATIVAN) 1 mg PO TID PRN #0 tab 11/08/12 History Gabapentin (Neurontin) 300 mg PO TID #0 cap 10/08/15 History Nitroglycerin (Nitrostat) 0.4 mg UT PRN #0 btl 10/08/15 History BUPROPION HCL (BUPROPION HCL XL) 1 tab PO HS #0 tab 05/07/16 History CYCLOBENZAPRINE HCL (FLEXERIL) 10 mg PO TID PRN #0 tab 05/07/16 History Clopidogrel (Plavix) 75 mg PO QAM #0 tab 05/07/16 History Donepezil HCl 10 mg PO DAILY #0 08/20/17 History Hydrocodone/Acetaminophen 1 tab PO Q6 PRN #0 tab 08/20/17 History 10MG/325MG ([place] 10MG/325MG) Insulin Aspart (NOVOLOG FLEXPEN) 10 unit SUBCUT TIDM #0 08/20/17 History Insulin Detemir (Levemir Flextouch) 28 unit SUBCUT HS #0 08/20/17 History LATANOPROST (XALATAN 0.005% OPH 1 drp OPHTHALMIC (EYE) HS #2.5 ml 08/20/17 History NASIR) LEVOTHYROXINE SODIUM 100 mcg PO DAILY #0 08/20/17 History ATORVASTATIN (LIPITOR) 80 mg PO DAILY 12/21/18 History aspirin [Aspirin Low Dose] 81 mg PO DAILY 12/21/18 12/21/18 History paroxetine HCl [Paxil] 20 mg PO DAILY 12/21/18 12/21/18 History Patient History Medical History Alzheimer disease CAD (coronary artery disease) Chronic back pain Depression Diabetes Hypothyroidism Surgical History Stented coronary artery Family History Father Heart disease Brother Heart disease Mother Heart disease Social History Preferred Language: Tajik Communication Ability: Effective Assistant Corporate Secretary Required: No Beliefs That Will Affect Care: None Current Living Situation: Spouse Other Information That Helps Us Care for You: No Feels Safe at Home: Yes Safety Concerns: Feels Safe At This Time Smoking Status: Never smoker Hx Alcohol Use: No Hx Substance Use: No Review of Systems Her only complaints of the HPI was fatigue nausea and occasional generalized weakness. Physical Exam Vital Signs (Past 24 Hours): Last Vital Signs Temp 36.7 C 12/23/18 11:48 Pulse 71 12/23/18 11:48 Resp 18 12/23/18 11:48 BP 198/72 H 12/23/18 11:48 Pulse Ox 96 12/23/18 11:48 on exam she is awake oriented x3. Her blood pressures are equal in both upper extremities. Her radials carotids and superficial temporal arteries are +2 bilaterally. There are no carotid bruits. Abdominal exam shows no abnormal dilatation of the aorta. Femorals and pedal pulses are all +2 bilaterally. Neurologic exam is grossly intact motor and sensory function. Results & Data Diagnostic Findings CTA showed a suggestion of a left subclavian artery stenosis however ultrasound shows normal antegrade flow in both vertebral arteries there is a 50-69% narrowing of her left internal carotid artery.
--- NOTE | 2018-12-23 13:36 | Cardiology Progress Note ---
Date of Service December 23, 2018 Assessment & Plan (1) Chest pain: The patient's description of chest discomfort is not cardiac in origin. Suspect may be musculoskeletal. No further cardiac evaluation necessary at this time. (2) CAD (coronary artery disease): The patient had 3 drug-eluting stents placed in the right coronary artery at the time of an inferior NH in September 2015. Her coronary disease has been quiescent on her current medical regimen. (3) HTN (hypertension): Adequate control on current regimen. (4) Carotid arterial disease: Carotid ultrasound noted severe disease on right, and a 50-69% stenosis in the left internal carotid artery. Will follow up as an outpatient with Dr. Garces. Subjective The patient is currently resting comfortably in bed and is without complaints of chest pain or dyspnea. Physical Exam Vital Signs (Past 24 Hours): Last Vital Signs Temp 36.7 C 12/23/18 11:48 Pulse 71 12/23/18 11:48 Resp 18 12/23/18 11:48 BP 198/72 H 12/23/18 11:48 Pulse Ox 96 12/23/18 11:48 Physical Exam: In general this is a well-developed well-nourished white female in no acute distress. HEENT exam is negative. Neck is supple with full carotid upstrokes. There are no carotid bruits. Jugular venous pressure is flat at 90. There is no thyromegaly. Cardiovascular exam reveals a regular rhythm with a normal S1 and S2. No S3, S4, or murmurs are noted. Lungs are clear without rales, rhonchi, or wheezes. Abdomen is soft and nontender without bruits. Extremities reveal intact radial artery and posterior tibial pulses bilaterally. There is no peripheral edema. Results & Data Diagnostic Findings ciaio counter molder is benign. (1) CAD (coronary artery disease) Associated angina: without angina Coronary Disease-Associated Artery/Lesion type: [place] artery [place] vs. transplanted heart: [place] heart Qualified Code(s): I25.10 - Atherosclerotic heart disease of [place] coronary artery without angina pectoris (2) Chest pain Chest pain type: unspecified Qualified Code(s): R07.9 - Chest pain, unspecified (3) HTN (hypertension) Hypertension type: essential hypertension Qualified Code(s): I10 - Essential (primary) hypertension
--- NOTE | 2018-12-23 14:40 | Pharmacy Report ---
Pharmacy Glycemic Short Note 2 - Date of Service December 23, 2018 - Glycemic Short BSG Results (Last 24 hours): 12/22/18 12/22/18 12/22/18 15:13 16:10 20:03 Glucose 67 L POC Glucose 71 152 H 12/23/18 12/23/18 12/23/18 05:23 07:14 11:12 Glucose 98 POC Glucose 103 H 171 H OUTPATIENT ANTIDIABETIC REGIMEN: * Levemir 28 units Q HS * Novolog 10 units w/ meals * A1c = 6.6% 12/22/18 The patient is currently receiving: * Basal insulin: Lantus 20 units x 1 last PM * Correctional Insulin: Novolog Correction per scale ACHS Goal Range: Low 110 mg/dL - High 140 mg/dL Correction Factor: 30 mg/dL/unit * Prandial insulin: Per carb ratio of 1 unit per 10 grams CHO consumed ASSESSMENT: * 12/23 * Post prandial BSG at dinner time was low. Will loosen carb coverage/correction factor for today * Fasting BSG well controlled. As this was a significant decrease from yesterday, will reduce the available lantus scale for this evening. * No apparent upcoming procedure per cardiology and vascular notes * 12/22 * Patient admitted last evening for possible ACS * A reduced dose of Lantus was given last evening due to concerns pt may be NPO for procedure today. Patient currently has T2DM diet ordered. * Pt had requested use of Lantus this admission rather than the Levemir she is ordered as out-pt. She had told the [facility] last evening "Levemir did not work" * Fasting BSG 136 with 10 units Lantus on board. Will increase Lantus dose to ~80% of home dosage as a diet is ordered. Will add a parameter too this order to allow for half-dose if pt will be NPO for procedure * Novolog CF and CR are appropriate starting points. Will continue the same today and monitor BSG pattern PLAN FOR INPATIENT GLYCEMIC CONTROL: * Basal insulin * Lantus SQ HS per the following: units 10 Q HS if BSG 140 or less; 15 units Q HS if BSG > 140 * Bolus insulin * NovoLog per scale ACHS or Q6hrs while NPO * Goal Range: Low 120 mg/dL - High 150 mg/dL * Correction Factor: 35 mg/dL/unit * Nutritional / Prandial insulin per carb ratio of 1 unit per 14 grams CHO consumed PLAN FOR DISCHARGE: * recent A1c shows good control with out-pt regimen. would be reasonable to resume her home regimen on discharge.
--- NOTE | 2018-12-23 15:31 | Hospitalist Progress Note ---
Date of Service December 23, 2018 Assessment & Plan (1) Chest pain: Right-sided chest pain radiating from the right axilla that is actually been ongoing for several months and patient reports has had a workup for this with an inflamed right axillary lymph node. Treated with azithromycin 5-day co urse with some improvement but not resolution. ACS has been ruled out here. Serial troponins all negative. Echocardiogram without wall motion abnormalities. ECG with LVH Seen by cardiology, Dr. Peacock, and he too feels this is not cardiac pain. CTA chest -- no PEs seen. No large area of pneumonia on right. No acute rib fractures. Left subclavian artery stenosis incidentally seen but unlikely the cause of right-sided symptoms. Sed rate and crp both normal. Recommend follow-up with PCP for possible repeat right axillary ultrasound and if lymphadenopathy not improved, recommend FNA (2) Dizziness: May have been medication related as apparently she took tizanidine the day that it happened. The only other time she is taking tizanidine was at bedtime and then she slept for many hours afterwards. Vertebral-basilar insufficiency possible due to her subclavian artery stenosis but felt to be less likely. Her dizziness has improved/resolved either way. -Recommend no further tizanidine to be given (3) CAD (coronary artery disease): Troponins all negative. EKGs with chronic ST changes. Echocardiogram normal as above except mild pulmonary hypertension Chest pain unlikely to be coronary-related. See discussion above. Appreciate cardiology consult. Cont asa, plavix and statin. -We will add metoprolol in the morning if blood pressures can tolerate after adding HCTZ and amlodipine today as below (4) DM type 2 (diabetes mellitus, type 2): glycemic control adequate at this time -Continue basal bolus insulin (5) HTN (hypertension): Blood pressures significantly uncontrolled here with systolics in the 200s. Review of her outpatient record reveals that she is supposed to be on HCTZ 12.5 mg once daily which had not been given here and is not on her home medication reconciliation. The patient also reports that previously, she was on amlodipine and metoprolol, both of these were stopped during a hospitalization over a year ago for what sounds like a pneumonia with sepsis and low blood pressures. -Start HCTZ 12.5 mg once daily today -Given her recent history of ray nods phenomenon and positive CORA with centromere antibody, will also start amlodipine 2.5 mg once daily now and titrate up as needed -Consider adding on metoprolol in the morning given her history of CAD if blood pressures can tolerate (6) HLD (hyperlipidemia): cont statin (7) Hypothyroidism: cont synthroid TSH at outside hospital wnl (8) GERD (gastroesophageal reflux disease): no symptoms at this time (9) Anxiety: Stable -Cont ativan prn -Continue fluoxetine 20 mg daily, bupropion XL 300 mg at bedtime -Continue donepezil 10 mg at bedtime presumably from mild cognitive impairment (10) Back pain: Chronic -Continue K-pad heating cont her usual narcotics prn poor NSAID candidate because of CKD (11) Subclavian artery stenosis, left: Noted incidentally on CT angiogram of the chest Carotid Dopplers show antegrade flow bilaterally consult vascular surgery appreciated-recommend no intervention cont statin, asa, plavix. (12) Chronic kidney disease, stage 3a: Finish out Mucomyst doses for renal protection in setting of CTA chest. Creatinine improved today at 1.16 (13) Carotid arterial disease: Carotid Doppler shows severe stenosis on the right and moderate 50-69% stenosis of the left internal carotid arteries. -Continue aspirin, Plavix, statin -Follow-up routinely with vascular surgery as an outpatient (14) DVT prophylaxis: Was on heparin drip which is since been discontinued after ACS ruled out -Start SQ heparin Disposition PT/OT evaluations were limited due to severely elevated blood pressure today so no recommendations made Remain on telemetry overnight and if blood pressures improved control tomorrow, can discharge Subjective Patient reports that the pain in her right side of her chest comes from her right axilla and has been going on for several months. She had a workup for this as an outpatient and was told she had enlarged inflamed lymph node in her right armpit and was treated with 5 days of azithromycin. She reports the pain did improve with antibiotic treatment but then has not resolved-she is awaiting follow-up with her PCP for this. The real reason she says she came to the hospital was because she almost passed out after taking the tizanidine several days ago. She no longer feels lightheaded. She denies headache or shortness of breath. No abdominal pain or nausea. Her blood pressures have been significantly elevated here. Telemetry with normal sinus rhythm with rates in the 70s I discussed the case with cardiology today. Review of Systems All systems reviewed & are unremarkable except as noted in HPI & below Physical Exam Vital Signs (Past 24 Hours): Last Vital Signs Temp 36.7 C 12/23/18 11:48 Pulse 71 12/23/18 11:48 Resp 18 12/23/18 11:48 BP 198/72 H 12/23/18 11:48 Pulse Ox 96 12/23/18 11:48 Constitutional: WD/WN, vitals as above Eyes: PERRL, conjunctivae normal, anicteric sclerae ENMT: external ear and nose normal, oropharynx normal Neck: trachea midline, no thyromegaly Respiratory: normal respiratory effort, lungs clear to auscultation Cardiovascular: RRR, no murmur, no edema Vessels: + carotid bruit (On the right); no JVD Gastrointestinal (Abdomen): normal bowel sounds, soft, nontender, no hepatosplenomegaly Musculoskeletal: Extremities: extremities normal to inspection; no cyanosis and no clubbing Skin: + wound (Small scab on right mid forehead and on bridge of nose) Neurologic: moves all extremities and awake; no focal motor deficits Psychiatric: A+Ox3, euthymic affect Results & Data Laboratory Results 12/23/18 12/23/18 12/23/18 Range/Units 16:14 11:12 07:14 Sodium (136-145) mmol/L Potassium (3.5-5.1) mmol/L Chloride (98-107) mmol/L Carbon Dioxide (21-32) mmol/L Anion Gap (3-11) BUN (7-18) mg/dl Creatinine (0.6-1.2) mg/dl Est Cr Clr Drug Dosing ml/min Est GFR ( Amer) Est GFR (Non-Af Amer) BUN/Creatinine Ratio (10-20) Glucose (70-99) mg/dl POC Glucose 138 H 171 H 103 H (70-99) Calcium (8.5-10.1) mg/dl 12/23/18 12/22/18 Range/Units 05:23 20:03 Sodium 145 (136-145) mmol/L Potassium 4.5 (3.5-5.1) mmol/L Chloride 113 H (98-107) mmol/L Carbon Dioxide 26 (21-32) mmol/L Anion Gap 6.0 (3-11) BUN 21 H (7-18) mg/dl Creatinine 1.16 (0.6-1.2) mg/dl Est Cr Clr Drug Dosing 38.4 ml/min Est GFR ( Amer) 54.9 Est GFR (Non-Af Amer) 47.3 BUN/Creatinine Ratio 18.5 (10-20) Glucose 98 (70-99) mg/dl POC Glucose 152 H (70-99) Calcium 8.3 L (8.5-10.1) mg/dl Diagnostic Findings Echo with normal LVEF, no diastolic dysfunction, wall motion abnormalities have resolved , Mild pulmonary hypertension (1) DM type 2 (diabetes mellitus, type 2) Chronic kidney disease stage: stage 3 (moderate) Diabetes mellitus complication detail: with chronic kidney disease Diabetes mellitus complication status: with kidney complications Diabetes mellitus lobsterman insulin use: with lobsterman use Qualified Code(s): E11.22 - Type 2 diabetes mellitus with diabetic chronic kidney disease; N18.3 - Chronic kidney disease, stage 3 (moderate); Z79.4 - medical terminologist (current) use of insulin (2) CAD (coronary artery disease) Associated angina: without angina Coronary Disease-Associated Artery/Lesion type: [place] artery [place] vs. transplanted heart: [place] heart Qualified Code(s): I25.10 - Atherosclerotic heart disease of [place] coronary artery without angina pectoris (3) Back pain Back pain laterality: midline Back pain location: thoracic back pain Chronicity: chronic Qualified Code(s): M54.6 - Pain in thoracic spine; G89.29 - Other chronic pain (4) HLD (hyperlipidemia) Hyperlipidemia type: mixed hyperlipidemia Qualified Code(s): E78.2 - Mixed hyperlipidemia (5) Hypothyroidism Hypothyroidism type: acquired Qualified Code(s): E03.9 - Hypothyroidism, unspecified (6) GERD (gastroesophageal reflux disease) Esophagitis presence: esophagitis presence not specified Qualified Code(s): K21.9 - Gastro-esophageal reflux disease without esophagitis (7) Chest pain Chest pain type: unspecified Qualified Code(s): R07.9 - Chest pain, unspecified (8) HTN (hypertension) Hypertension type: essential hypertension Qualified Code(s): I10 - Essential (primary) hypertension
[2018-12-23] MEDS: hydroCHLOROthiazide 25 MG TAB PO SCH (15:43)
[2018-12-23] MEDS: AMLODIPINE BESYLATE 5 MG TAB PO SCH (15:44)
[2018-12-23] MEDS: DONEPEZIL HCL 10 MG TAB PO SCH (20:14)
[2018-12-23] MEDS: BuPROPion XL 300 MG TABCR PO SCH (20:15)
[2018-12-23] MEDS: LATANOPROST 0.005% OP SOLN 2.5 ML BTL OP SCH (20:15)
[2018-12-23] MEDS: INSULIN GLARGINE SOLOSTAR 100 UNITS/ML 3 ML PEN SC SCH (21:00)
[2018-12-23] MEDS: HEPARIN SOD 5,000 UNIT/0.5 ML VIAL SQ SCH (22:03)
[2018-12-24] MEDS: LORazepam 1 MG TAB PO PRN (00:36)
[2018-12-24] MEDS: HYDROCODONE/ACETAMINOPHEN 10/325 TAB PO PRN ×3 (03:02→21:59)
[2018-12-24] MEDS: LEVOTHYROXINE SODIUM 100 MCG TABLET PO SCH (06:03)
[2018-12-24] MEDS: HEPARIN SOD 5,000 UNIT/0.5 ML VIAL SQ SCH ×3 (06:04→21:51)
[2018-12-24] MEDS ORDERED: LORazepam 1 MG TAB PO PRN (07:30)
[2018-12-24] MEDS: PARoxetine HCl 20 MG TAB PO SCH (08:13)
[2018-12-24] MEDS: GABAPENTIN 300 MG CAP PO SCH ×3 (08:13→21:47)
[2018-12-24] MEDS: CLOPIDOGREL BISULFATE 75 MG TAB PO SCH (08:13)
[2018-12-24] MEDS: ATORVASTATIN 40 MG TAB PO SCH (08:13)
[2018-12-24] MEDS: hydroCHLOROthiazide 25 MG TAB PO SCH (08:13)
[2018-12-24] MEDS: ASPIRIN 81 MG ECTAB PO SCH (08:13)
[2018-12-24] MEDS: INSULIN ASPART 100 UNITS/ML 3 ML PEN SC SCH ×4 (08:14→21:51)
[2018-12-24] MEDS: AMLODIPINE BESYLATE 5 MG TAB PO SCH (08:14)
[2018-12-24] MEDS ORDERED: AMLODIPINE BESYLATE 5 MG TAB PO ONE (08:48)
[2018-12-24 09:51] LABS: BUN Creatinine Ratio 15.4 (10-20); Calcium 9.5 mg/dl (8.5-10.1); Creatinine Clr Calc Pharmacy 34.3 ml/min; Est GFR (African American) 47.8; Est GFR (Non-African American) 41.2; Potassium 3.9 mmol/L (3.5-5.1)
--- NOTE | 2018-12-24 11:03 | Cardiology Progress Note ---
Date of Service December 24, 2018 Assessment & Plan (1) Chest pain: The patient's description of chest discomfort is likely musculoskeletal. No further cardiac evaluation necessary. (2) CAD (coronary artery disease): The patient had 3 drug-eluting stents placed in the RCA at the time of an inferior UT in September 2015. Her coronary disease has been quiescent on her current medical regimen. (3) HTN (hypertension): Tolerating the addition of amlodipine and hydrochlorothiazide. Agree with the use of metoprolol hoping for better control of her systolic hypertension. (4) Carotid arterial disease: Carotid ultrasound noted severe disease on right, and a 50-69% stenosis in the left internal carotid artery. Will follow up with Dr. Garces. Subjective The patient is resting comfortably in bed without complaints of chest pain or dyspnea. She is concerned about her elevated blood pressure. Physical Exam Vital Signs (Past 24 Hours): Last Vital Signs Temp 36.6 C 12/24/18 10:33 Pulse 59 L 12/24/18 10:33 Resp 19 12/24/18 10:33 BP 181/53 H 12/24/18 10:33 Pulse Ox 92 12/24/18 10:33 Physical Exam: In general this is a well-developed well-nourished white female in no acute distress. HEENT exam is negative. Neck is supple with full carotid upstrokes. There are no carotid bruits. Jugular venous pressure is flat at 90. There is no thyromegaly. Cardiovascular exam reveals a regular rhythm with a normal S1 and S2. No S3, S4, or murmurs are noted. Lungs are clear without rales, rhonchi, or wheezes. Abdomen is soft and nontender without bruits. Extremities reveal intact radial artery and posterior tibial pulses bilaterally. There is no peripheral edema. Results & Data Laboratory Results Laboratory Results - last 24 hr 12/23/18 12/23/18 12/23/18 11:12 16:14 20:13 Sodium Potassium Chloride Carbon Dioxide Anion Gap BUN Creatinine Est Cr Clr Drug Dosing Est GFR ( Amer) Est GFR (Non-Af Amer) BUN/Creatinine Ratio Glucose POC Glucose 171 H 138 H 166 H Calcium Magnesium 12/24/18 12/24/18 07:10 08:56 Sodium 141 Potassium 3.9 Chloride 106 Carbon Dioxide 27 Anion Gap 7.0 BUN 20 H Creatinine 1.30 H Est Cr Clr Drug Dosing 34.3 Est GFR ( Amer) 47.8 Est GFR (Non-Af Amer) 41.2 BUN/Creatinine Ratio 15.4 Glucose 221 H POC Glucose 124 H Calcium 9.5 Magnesium 2.0 Diagnostic Findings child monitor is benign. (1) CAD (coronary artery disease) Associated angina: without angina Coronary Disease-Associated Artery/Lesion type: [place] artery [place] vs. transplanted heart: [place] heart Qualified Code(s): I25.10 - Atherosclerotic heart disease of [place] coronary artery without angina pectoris (2) Chest pain Chest pain type: unspecified Qualified Code(s): R07.9 - Chest pain, unspecified (3) HTN (hypertension) Hypertension type: essential hypertension Qualified Code(s): I10 - Essential (primary) hypertension
[2018-12-24] MEDS: METOPROLOL TARTRATE 25 MG TAB PO SCH ×2 (11:55→21:47)
--- NOTE | 2018-12-24 14:08 | Pharmacy Report ---
Glycemic Control Progress Note - Date of Service December 24, 2018 - Scope Glycemic Pharmacist consulted for glycemic control to write orders per [facility] inpatient glycemic control protocol. - Objective Accuchecks BSG(last 24 hours):: 12/23/18 12/23/18 12/24/18 16:14 20:13 07:10 Glucose POC Glucose 138 H 166 H 124 H 12/24/18 12/24/18 08:56 11:04 Glucose 221 H POC Glucose 158 H HbA1c:: Hemoglobin A1c 6.6 % (4.5-5.6) H 12/22/18 07:30 - Recent Pertinent Medications The patient is currently receiving: * Basal insulin: Lantus 10-15 units every 120 hours * Correctional Insulin: Novolog Correction per scale ACHS Goal Range: Low 120 mg/dL - High 150 mg/dL Correction Factor: 35 mg/dL/unit * Prandial insulin: Per carb ratio of 1 unit per 14 grams CHO consumed - Outpatient Anti-Diabetic Meds Levemir 28 units at bedtime Novolog 10 units with meals TDD = 58 units - Assessment & Plan ASSESSMENT: * See progress note from 12/22/18 for more background info, in short: * Pt receiving SQ basal bolus insulin regimen for hyperglycemia secondary to baseline DM (outpatient regimen on hold). * Patient is currently receiving an average of 26 units of insulin per day * 15 units of basal insulin * 11 units of prandial/correctional insulin * BSGs ranging 103 - 171 mg/dl over the past 24hrs * Changes needed to insulin regimen: * AM Fasting BSG = 166 mg/dl. This is slightly above goal range for patient based on inpatient targets and co-morbidities. Will increase basal insulin slightly to a fixed dose of 18 units. Appears that 20 units is too much according to previous data. * Post-prandial BSGs are in range therefore no changes needed to CF/CR. Will tighten up carbohydrate ratio slightly to CR of 12. * Total daily dose = ~30-35 units. PLAN FOR INPATIENT GLYCEMIC CONTROL: * INCREASING Lantus to 18 units SQ HS * Tightening correction factor to 30 mg/dl/unit * Tightening carb ratio to 1 unit per 12 grams CHO consumed * Continuing goal range of Low 120 mg/dL - High 150 mg/dL RECOMMENDATIONS FOR DISCHARGE: * Patient's HbA1c appears well controlled. May continue home regimen as long as she does not have hypoglycemia. May actually loosen since HbA1C of 6.6% may be too aggressive in a 73 y/o. * Please note that the plan above was derived based on current level of insulin resistance and hospital stress. These recommendations are appropriate for inpatient admission only. Plan of care upon discharge will need to be reassessed to avoid potential outpatient hypo/hyperglycemia. Thank you.
[2018-12-24] MEDS ORDERED: SODIUM CHLORIDE 0.65% NA SOLN 45 ML (OCEAN) NAE PRN (14:11)
--- NOTE | 2018-12-24 14:11 | Hospitalist Progress Note ---
Date of Service December 24, 2018 Assessment & Plan (1) Chest pain: Right-sided chest pain radiating from the right axilla that is actually been ongoing for several months and patient reports has had a workup for this with an inflamed right axillary lymph node. Treated with azithromycin 5-day co urse with some improvement but not resolution. ACS has been ruled out here. Serial troponins all negative. Echocardiogram without wall motion abnormalities. ECG with LVH Seen by cardiology, Dr. Peacock, and he too feels this is not cardiac pain. CTA chest -- no PEs seen. No large area of pneumonia on right. No acute rib fractures. Left subclavian artery stenosis incidentally seen but unlikely the cause of right-sided symptoms. Sed rate and crp both normal. Recommend follow-up with PCP for possible repeat right axillary ultrasound and if lymphadenopathy not improved, recommend FNA -will request Axillary US results previously performed at [facility] for review (2) Dizziness: May have been medication related as apparently she took tizanidine the day that it happened. The only other time she is taking tizanidine was at bedtime and then she slept for many hours afterwards. Vertebral-basilar insufficiency possible due to her subclavian artery stenosis but felt to be less likely. Her dizziness has improved/resolved either way. -Recommend no further tizanidine to be given (3) CAD (coronary artery disease): Troponins all negative. EKGs with chronic ST changes. Echocardiogram normal as above except mild pulmonary hypertension Chest pain is not coronary-related. See discussion above. Appreciate cardiology consult. Cont asa, plavix and statin. - add metoprolol low dose today for improved BP control and for CAD (4) DM type 2 (diabetes mellitus, type 2): glycemic control adequate at this time -Continue basal bolus insulin (5) HTN (hypertension): Blood pressures significantly uncontrolled here with systolics in the 200s. Review of her outpatient record reveals that she is supposed to be on HCTZ 12.5 mg once daily which had not been given here and is not on her home medication reconciliation. The patient also reports that previously, she was on amlodipine and metoprolol, both of these were stopped during a hospitalization over a year ago for what sounds like a pneumonia with sepsis and low blood pressures. BPs slightly improved today with addition of HCTZ and amlodipine yesterday but still 180s systolic and has a mild headache -cont HCTZ 12.5 mg once daily -increase amlodipine to 5mg daily which will also help her with recent history of Raynaud's phenomenon and positive CORA with centromere antibody -add on metoprolol tartrate 12.5mg po bid given her history of CAD-continue to f ollow BPs (6) HLD (hyperlipidemia): cont statin (7) Hypothyroidism: cont synthroid TSH at outside hospital wnl (8) GERD (gastroesophageal reflux disease): no symptoms at this time (9) Anxiety: Stable but seems to have multiple daily complaints -Cont ativan prn -Continue fluoxetine 20 mg daily, bupropion XL 300 mg at bedtime -Continue donepezil 10 mg at bedtime presumably from mild cognitive impairment (10) Back pain: Chronic -Continue K-pad heating cont her usual narcotics prn poor NSAID candidate because of CKD (11) Subclavian artery stenosis, left: Noted incidentally on CT angiogram of the chest Carotid Dopplers show antegrade flow bilaterally consult vascular surgery appreciated-recommend no intervention cont statin, asa, plavix. (12) Chronic kidney disease, stage 3a: Finished out Mucomyst doses for renal protection in setting of CTA chest. Creatinine with slight increase today at 1.30 after starting HCTZ-not concerning -follow BMP -avoid nephrotoxins -renally dose meds (13) Carotid arterial disease: Carotid Doppler shows severe stenosis on the right and moderate 50-69% stenosis of the left internal carotid arteries. -Continue aspirin, Plavix, statin -Follow-up routinely with vascular surgery as an outpatient (14) Nasal congestion: could be allergies -add on nasal saline cough likely from nasal drip (15) DVT prophylaxis: continue SQ heparin Disposition PT/OT evaluations were limited due to severely elevated blood pressure so no recommendations made on 12/23, awaiting return of PT/OT Remain on telemetry overnight and if blood pressures improved control tomorrow, can discharge as per pt's request Subjective Pt reports she is not having a good day. Feels a bitemporal headache since yesterday, BPs still elevated. No lightheadedness, no nausea or vomiting, danielito po. Is c/o a new cough and nasal congestion. Every time she coughs it sends pains into her right axilla. Pt also wants me to follow up on the results of her blood cultures drawn at [facility]. She states she never had a fever "but I never get a fever," and they jeff BCxs because "I always get infections." Tele with NSR, rates in the 40s-60s overnight and 80s during day Review of Systems All systems reviewed & are unremarkable except as noted in HPI & below Physical Exam Vital Signs (Past 24 Hours): Last Vital Signs Temp 36.6 C 12/24/18 10:33 Pulse 59 L 12/24/18 10:33 Resp 19 12/24/18 10:33 BP 181/53 H 12/24/18 10:33 Pulse Ox 92 12/24/18 10:33 Constitutional: WD/WN, vitals as above Eyes: PERRL, conjunctivae normal, anicteric sclerae Neck: trachea midline, no thyromegaly Respiratory: normal respiratory effort, lungs clear to auscultation + cough (with dry barking cough on exam) Cardiovascular: RRR, no murmur, no edema Vessels: + carotid bruit (On the right); no JVD Gastrointestinal (Abdomen): normal bowel sounds, soft, nontender, no hepatosplenomegaly Musculoskeletal: Extremities: extremities normal to inspection; no cyanosis and no clubbing Skin: + wound (Small scab on right mid forehead and on bridge of nose) Neurologic: moves all extremities and awake; no focal motor deficits Psychiatric: A+Ox3, euthymic affect Results & Data Laboratory Results 12/24/18 12/24/18 12/24/18 Range/Units 11:04 08:56 07:10 Sodium 141 (136-145) mmol/L Potassium 3.9 (3.5-5.1) mmol/L Chloride 106 (98-107) mmol/L Carbon Dioxide 27 (21-32) mmol/L Anion Gap 7.0 (3-11) BUN 20 H (7-18) mg/dl Creatinine 1.30 H (0.6-1.2) mg/dl Est Cr Clr Drug Dosing 34.3 ml/min Est GFR ( Amer) 47.8 Est GFR (Non-Af Amer) 41.2 BUN/Creatinine Ratio 15.4 (10-20) Glucose 221 H (70-99) mg/dl POC Glucose 158 H 124 H (70-99) Calcium 9.5 (8.5-10.1) mg/dl Magnesium 2.0 (1.8-2.4) mg/dl 12/23/18 12/23/18 Range/Units 20:13 16:14 Sodium (136-145) mmol/L Potassium (3.5-5.1) mmol/L Chloride (98-107) mmol/L Carbon Dioxide (21-32) mmol/L Anion Gap (3-11) BUN (7-18) mg/dl Creatinine (0.6-1.2) mg/dl Est Cr Clr Drug Dosing ml/min Est GFR ( Amer) Est GFR (Non-Af Amer) BUN/Creatinine Ratio (10-20) Glucose (70-99) mg/dl POC Glucose 166 H 138 H (70-99) Calcium (8.5-10.1) mg/dl Magnesium (1.8-2.4) mg/dl (1) Chest pain Chest pain type: unspecified Qualified Code(s): R07.9 - Chest pain, unspecified (2) CAD (coronary artery disease) Coronary Disease-Associated Artery/Lesion type: [place] artery [place] vs. transplanted heart: [place] heart Associated angina: without angina Qualified Code(s): I25.10 - Atherosclerotic heart disease of [place] coronary artery without angina pectoris (3) DM type 2 (diabetes mellitus, type 2) Diabetes mellitus mcc insulin use: with mcc use Diabetes mellitus complication status: with kidney complications Diabetes mellitus complication detail: with chronic kidney disease Chronic kidney disease stage: stage 3 (moderate) Qualified Code(s): E11.22 - Type 2 diabetes mellitus with diabetic chronic kidney disease; N18.3 - Chronic kidney disease, stage 3 (moderate); Z79.4 - prison (current) use of insulin (4) HTN (hypertension) Hypertension type: essential hypertension Qualified Code(s): I10 - Essential (primary) hypertension (5) HLD (hyperlipidemia) Hyperlipidemia type: mixed hyperlipidemia Qualified Code(s): E78.2 - Mixed hyperlipidemia (6) Hypothyroidism Hypothyroidism type: acquired Qualified Code(s): E03.9 - Hypothyroidism, unspecified (7) GERD (gastroesophageal reflux disease) Esophagitis presence: esophagitis presence not specified Qualified Code(s): K21.9 - Gastro-esophageal reflux disease without esophagitis (8) Back pain Back pain location: thoracic back pain Chronicity: chronic Back pain laterality: midline Qualified Code(s): M54.6 - Pain in thoracic spine; G89.29 - Other chronic pain
[2018-12-24] MEDS ORDERED: INSULIN GLARGINE SOLOSTAR 100 UNITS/ML 3 ML PEN SC SCH (21:00)
[2018-12-24] MEDS: DONEPEZIL HCL 10 MG TAB PO SCH (21:47)
[2018-12-24] MEDS: BuPROPion XL 300 MG TABCR PO SCH (21:47)
[2018-12-24] MEDS: BENZONATATE 100 MG CAPSULE PO SCH (21:48)
[2018-12-24] MEDS: LATANOPROST 0.005% OP SOLN 2.5 ML BTL OP SCH (21:48)
[2018-12-25] MEDS: LEVOTHYROXINE SODIUM 100 MCG TABLET PO SCH (05:37)
[2018-12-25] MEDS: HEPARIN SOD 5,000 UNIT/0.5 ML VIAL SQ SCH (05:37)
[2018-12-25 06:53] LABS: Basophils # (auto) 0.04 K/uL (0-0.2); Basophils % (auto) 0.4 %; Eosinophils # (auto) 0.43 K/uL (0-0.5); Eosinophils % (auto) 3.9 %; Hematocrit (blood only) 35.1 % (37-47); Immature Granulocytes # (auto) 0.02 K/uL (0.00-0.02); Immature Granulocytes % (auto) 0.2 %; Lymphocytes # (auto) 3.63 K/uL (1.2-3.4); Lymphocytes % (auto) 33.2 %; Mean Corpuscular Hgb Conc 34.2 g/dL (32-36); Mean Corpuscular Volume 88.9 fL (80-100); Mean Platelet Volume 9.4 fL (7.4-10.4); Monocytes # (auto) 0.72 K/uL (0.11-0.59); Monocytes % (auto) 6.6 %; Neutrophils # (auto) 6.08 K/uL (1.4-6.5); Neutrophils % (auto) 55.7 %; Platelet Count 304 K/uL (130-400); RDW Coefficient of Variation 12.5 % (11.5-14.5); RDW Standard Deviation 40.5 fL (36.4-46.3); Red Blood Count 3.95 M/uL (4.2-5.4); White Blood Count 10.92 K/uL (4.8-10.8)
[2018-12-25 07:11] LABS: BUN Creatinine Ratio 20.9 (10-20); Calcium 8.4 mg/dl (8.5-10.1); Creatinine Clr Calc Pharmacy 35.4 ml/min; Est GFR (African American) 49.6; Est GFR (Non-African American) 42.8; Potassium 4.2 mmol/L (3.5-5.1)
[2018-12-25 07:18] LABS: Ferritin 35.8 ng/ml (8-388)
[2018-12-25] MEDS: HYDROCODONE/ACETAMINOPHEN 10/325 TAB PO PRN (07:40)
[2018-12-25] MEDS: INSULIN ASPART 100 UNITS/ML 3 ML PEN SC SCH ×2 (08:22→11:56)
[2018-12-25] MEDS: ASPIRIN 81 MG ECTAB PO SCH (08:26)
[2018-12-25] MEDS: hydroCHLOROthiazide 25 MG TAB PO SCH (08:27)
[2018-12-25] MEDS: ATORVASTATIN 40 MG TAB PO SCH (08:28)
[2018-12-25] MEDS: METOPROLOL TARTRATE 25 MG TAB PO SCH (08:30)
[2018-12-25] MEDS: GABAPENTIN 300 MG CAP PO SCH (08:30)
[2018-12-25] MEDS: BENZONATATE 100 MG CAPSULE PO SCH (08:31)
[2018-12-25] MEDS: PARoxetine HCl 20 MG TAB PO SCH (08:31)
[2018-12-25] MEDS: CLOPIDOGREL BISULFATE 75 MG TAB PO SCH (08:31)
[2018-12-25 08:39] LABS: Folate (Folic Acid) 11.79 ng/ml (>5.38)
[2018-12-25] MEDS ORDERED: AMLODIPINE BESYLATE 5 MG TAB PO SCH (09:00)
--- NOTE | 2018-12-25 09:29 | Discharge Summary ---
Date of Service December 25, 2018 Admission HPI Per Admitting Provider 73yo F w/ hx CAD (s/p 3 stents, last in 2016) who presents with history consistent with unstable angina. Per patient, has been having chest pain which she describes as a heaviness in the right substernal area with radiation up to the jaw. With the chest pain she reports nausea and diaphoresis. The pain has been intermittent over the last few weeks. Each time it comes on and lasts for approximately 1 hour and gradually fades away. She denies any exacerbating or ameliorating factors, having forgotten that she has nitroglycerin she has not taken any in an attempt to relieve the pain. She denies that exertion worsens the pain or that rest improves the pain. On Thursday afternoon, she reports sudden onset of a particularly severe episode of the chest pain, rating it at 10/10. She also felt lightheaded with this chest pain, and when she stood up to check her blood pressure she got so dizzy that she fell down. She reports striking her head, but denies loss of consciousness. She reports possible palpitations around this time as well, though she is not certain. At present she rates her chest pain is a 34/10. She denies fevers, chills, abdominal pain, nausea, vomiting, diaphoresis, or other symptoms at this time. Principal Diagnosis Chest pain, presyncope Discharge Exam Constitutional WD/WN, vitals as above Eyes PERRL, conjunctivae normal, anicteric sclerae ENMT external ear and nose normal, oropharynx normal Neck trachea midline, no thyromegaly neck nontender Respiratory normal respiratory effort, lungs clear to auscultation + cough (with dry barking cough on exam) Cardiovascular RRR, no murmur, no edema Vessels: + carotid bruit (On the right); no JVD Gastrointestinal (Abdomen) normal bowel sounds, soft, nontender, no hepatosplenomegaly Musculoskeletal Extremities: extremities normal to inspection; no cyanosis and no clubbing Skin + wound (Small scab on right mid forehead and on bridge of nose) Neurologic moves all extremities and awake; no focal motor deficits Psychiatric A+Ox3, euthymic affect Discharge Data Allergies Allergy/AdvReac Type Severity Reaction Status Date / Time Cephalosporins Allergy Intermediate RASH Verified 12/21/18 15:36 paroxetine Allergy Intermediate RASH Verified 12/21/18 15:36 Penicillins Allergy Intermediate RASH Verified 12/21/18 15:36 latex Allergy Mild SWELLING Verified 05/07/16 08:23 alendronate sodium Allergy Unknown RASH Verified 05/07/16 08:23 Benzodiazepines Allergy Unknown ATIVAN IS Verified 05/07/16 08:23 OK guaifenesin Allergy Unknown Unknown Verified 12/21/18 15:36 imipramine Allergy Unknown Unknown Verified 12/21/18 15:36 Macrolide Antibiotics Allergy Unknown ` Verified 05/07/16 08:23 phenylephrine Allergy Unknown Unknown Verified 12/21/18 15:36 phenylpropanolamine Allergy Unknown Unknown Verified 12/21/18 15:36 protirelin Allergy Unknown Unknown Verified 12/21/18 15:36 trazodone Allergy Unknown NIGHTMARES Verified 05/07/16 08:23 valsartan Allergy Unknown Unknown Verified 12/21/18 15:36 orange Allergy Verified 12/22/18 08:52 strawberry Allergy Verified 12/22/18 08:52 adhesive AdvReac Intermediate blisters Verified 12/21/18 15:36 on skin Sulfa (Sulfonamide AdvReac Mild VOMITING Verified 05/07/16 08:23 Antibiotics) Consultations Cardiology Vascular surgery Ordered Studies 12/22/18 16:26 CT angio chest PE protocol Routine 12/22/18 19:20 US carotid doppler BI Routine Echocardiogram Hospital Course (1) Chest pain: Right-sided chest pain radiating from the right axilla that is actually been ongoing for several months and patient reports has had a workup for this with an inflamed right axillary lymph node. Treated with azithromycin 5-day course as an outpatient with some improvement but not resolution. ACS has been ruled out here. Serial troponins all negative. Echocardiogram without wall motion abnormalities. ECG with LVH Seen by cardiology, Dr. Peacock, and he too feels this is not cardiac pain. CTA chest -- no PEs seen. No large area of pneumonia on right. No acute rib fractures. Left subclavian artery stenosis incidentally seen but unlikely the cause of right-sided symptoms. Sed rate and crp both normal. Recommend follow-up with PCP for possible repeat right axillary ultrasound and if lymphadenopathy not improved, recommend FNA - requested Axillary US results previously performed at [facility] for review but did not get faxed here prior to [id number] with PCP -Can continue taking pain medicine at home as needed (2) Dizziness: Presented with nearly passing out prior to admission. May have been medication related as apparently she took tizanidine the day that it happened. The only other time she is taking tizanidine was at bedtime and then she slept for many hours afterwards. Vertebral-basilar insufficiency possible due to her subclavian artery stenosis but felt to be less likely. Her dizziness has improved/resolved either way. -Recommend no further tizanidine to be given (3) CAD (coronary artery disease): Troponins all negative. EKGs with chronic ST changes. Echocardiogram normal as above except mild pulmonary hypertension Chest pain is not coronary-related. See discussion above. Appreciate cardiology consult. Cont asa, plavix and statin. - added metoprolol low dose for improved BP control and for CAD-tolerating well (4) DM type 2 (diabetes mellitus, type 2): glycemic control adequate at this time -Continue basal bolus insulin at home but lowered home Lantus dose to 22 units upon discharge as she was requiring less insulin as an inpatient (5) HTN (hypertension): Blood pressures significantly uncontrolled here with systolics in the 200s. Review of her outpatient record reveals that she is supposed to be on HCTZ 12.5 mg once daily which had not been given here and is not on her home medication reconciliation. The patient also reports that previously, she was on amlodipine and metoprolol, both of these were stopped during a hospitalization over a year ago for what sounds like a pneumonia with sepsis and low blood pressures. BPs much improved by the day of discharge with addition of HCTZ, amlodipine, and metoprolol -cont HCTZ 12.5 mg once daily -Continue amlodipine 5mg daily which will also help her with recent history of Raynaud's phenomenon and positive CORA with centromere antibody -Continue metoprolol tartrate 12.5mg po bid given her history of CAD-continue to follow BPs at home after discharge (6) HLD (hyperlipidemia): cont statin (7) Hypothyroidism: cont synthroid TSH at outside hospital wnl (8) GERD (gastroesophageal reflux disease): no symptoms at this time (9) Anxiety: Stable but seems to have multiple daily complaints -Cont ativan prn -Continue peroxide teen 20 mg daily, bupropion XL 300 mg at bedtime -Continue donepezil 10 mg at bedtime presumably from mild cognitive impairment (10) Back pain: Chronic -Treated with heating pad cont her usual narcotics prn poor NSAID candidate because of CKD (11) Subclavian artery stenosis, left: Noted incidentally on CT angiogram of the chest Carotid Dopplers show antegrade flow bilaterally consult vascular surgery appreciated-recommend no intervention cont statin, asa, plavix. (12) Chronic kidney disease, stage 3a: Finished out Mucomyst doses for renal protection in setting of CTA chest. Creatinine stable at 1.26 on the day of discharge -follow BMP -avoid nephrotoxins -renally dose meds (13) Carotid arterial disease: Carotid Doppler shows severe stenosis on the right and moderate 50-69% stenosis of the left internal carotid arteries. -Continue aspirin, Plavix, statin -Follow-up routinely with vascular surgery as an outpatient in 6 months with repeat ultrasound at that time (14) Nasal congestion: With nasal congestion and developing cough during admission. Lungs clear on examination and appears well otherwise. With mild leukocytosis with lymphocyte and monocyte predominance, likely a new viral URI -Continue nasal saline cough likely from nasal drip -Continue Robitussin DM as needed at home Follow-up with PCP (15) Anemia: Hemoglobin was 10.5-12 throughout her stay. It is normocytic anemia. Her iron studies show borderline low ferritin at 35, transferrin saturation borderline low at 13%, serum iron borderline low at 36, TIBC low at 191-seems more consistent with anemia of chronic disease likely renal disease B12 and folate were pending at the time of discharge and should be followed up on by her PCP (16) Raynaud phenomenon: With history of this times 8 months, with positive CORA with very high titer with centromere antibody-needs referral to rheumatology as an outpatient -Started on amlodipine here -Should avoid cold environments (17) DVT prophylaxis: She was provided with SQ heparin Disposition Stable for discharge to home Total Time Total Time Spent Total Time Spent (In Minutes): Greater than 30 minutes Total Time Includes: Examination of the Patient, Discharge Planning and Medication Reconciliation Discharge Plan Discharge Items Patient Disposition: Home - Self-Care Reason For Visit: Chest pain Discharge Diagnosis: Chest pain, uncontrolled hypertension Condition: Good Discharge Goals: Diagnostic testing, Improve disease control and Learn about illness Activity: Resume your previous activity Lifting: Gradually increase as tolerated Bathing: No limitations Exercise/Sports: Gradually increase as tolerated Non-emergency contact: Primary Care Provider and Salvage D[employer] Call non-emergency contact if: you have any medication questions, your symptoms worsen, your pain is not controlled, your pain is worsening, your pain is unusual for you and your pain is concerning for you Follow-up/Referrals: Meet Peacock MD [[employer]] - 01/06/19 12:00 pm Rani Curtis PA-C [Primary Care Provider] - 12/29/18 1:40 pm (An appointment was made on your behalf at your PCP's office with MARYBEL Coronado on Thursday, 12/29 at 1:40pm. Please call the office at with any questions or concerns. ) Diet: Carb Consistent or DM2 and Heart Healthy Addtl Provider Instructions: You were admitted to the hospital for right-sided chest pain which is likely coming from either a musculoskeletal source or possibly an enlarged, inflamed lymph node in your right armpit. Please follow-up with your primary care physician regarding this ongoing pain. You had extensive testing of your heart and all proved to be normal. Your blood pressure was significantly uncontrolled and you were started on 2 new medications for this: Amlodipine and metoprolol. Please check your blood pressures daily at home and keep a log of your blood pressure readings to bring to your primary care physician. Please follow-up with your PCP and cardiology as scheduled for you. Prescriptions: New amlodipine [Norvasc] 5 mg Tablet 5 mg PO QAM Qty: 30 RF: 0 hydrochlorothiazide 25 mg Tablet 12.5 mg PO QAM Qty: 15 RF: 0 sodium chloride [Saline Mist] 0.65 % Aerosol,[place] 2 sprays RAMESH Q2H PRN (Reason: nasal congestion) Qty: 15 RF: 0 metoprolol tartrate 25 mg Tablet 12.5 mg PO BID Qty: 30 RF: 0 Continued LORAZEPAM (ATIVAN) 1 MG tablet 1 mg PO TID PRN (Reason: Anxiety) Qty: 0 RF: 0 Nitroglycerin (Nitrostat) 0.4 MG tablet 0.4 mg UT PRN Qty: 0 RF: 0 Gabapentin (Neurontin) 300 MG capsule 300 mg PO TID Qty: 0 RF: 0 BUPROPION HCL (BUPROPION HCL XL) 300 MG tablet 1 tab PO HS Qty: 0 RF: 0 CYCLOBENZAPRINE HCL (FLEXERIL) 10 MG tablet 10 mg PO TID PRN (Reason: Muscle Spasms) Qty: 0 RF: 0 Clopidogrel (Plavix) 75 MG tablet 75 mg PO QAM Qty: 0 RF: 0 Donepezil HCl 10 MG tablet 10 mg PO DAILY Qty: 0 RF: 0 Hydrocodone/Acetaminophen 10MG/325MG (Ider 10MG/325MG) tablet 1 tab PO Q6 PRN (Reason: Pain) Qty: 0 RF: 0 Insulin Aspart (NOVOLOG FLEXPEN) 100 UNITS/ML INJECTION 10 unit subcut TIDM Qty: 0 RF: 0 LATANOPROST (XALATAN 0.005% OPH NASIR) 0.005 % SOLTAB 1 drp ophthalmic (eye) HS Qty: 2.5 RF: 3 LEVOTHYROXINE SODIUM 75 MCG tablet 100 mcg PO DAILY Qty: 0 RF: 0 aspirin [Aspirin Low Dose] 81 mg Tablet,Delayed Release (Dr/Ec) 81 mg PO DAILY RF: 0 ATORVASTATIN (LIPITOR) 40 MG tablet 80 mg PO DAILY RF: 0 paroxetine HCl [Paxil] 20 mg Tablet 20 mg PO DAILY RF: 0 Changed Insulin Detemir (Levemir Flextouch) 100 UNIT/ML INJECTION 22 unit subcut HS Qty: 0 RF: 0 Stand-Alone Forms: [facility], [facility] Discharge Orders: Discharge Order (Routine); Ordered 12/25/18 Ordered By: Melissa Ashby Admission Data Admit Date/Time: 12/21/18 14:21 Attending Provider: Melissa Ashby Admit Provider: Ashwin Marie Primary Care Provider: Rani Curtis Other Providers: Meet Peacock ; Rolo Garces Service: Telemetry Other Pending Studies at Discharge: No
[2018-12-25] MEDS ORDERED: INSULIN GLARGINE SOLOSTAR 100 UNITS/ML 3 ML PEN SC SCH (21:00)
== END 2018-12-25 14:17 | disposition home or self-care (01) | DRG 313 ==
LOC: 2S 14:21 → SUATTDRO 14:21

== ENCOUNTER 2025-05-09 07:04 | Observation (INO) ==
[2025-05-09 07:36] LABS: Hematocrit (blood only) 37.0 % (37.0-47.0); Hemoglobin 12.0 g/dl (12.0-16.0); Mean Corpuscular Hemoglobin 29.6 pg (25.0-34.0); Mean Corpuscular Volume 91.1 fL (80.0-100.0); Platelet Count 312 K/uL (130-400); RDW Standard Deviation 43.8 fL (36.4-46.3); Red Blood Count 4.06 M/uL (4.20-5.40); White Blood Count 14.96 K/ul (4.8-10.8)
[2025-05-09 07:59] LABS: Anion Gap 8.0 (3-11); Blood Urea Nitrogen 21.0 mg/dl (6-23); Calcium 9.3 mg/dl (8.6-10.3); Carbon Dioxide 32.0 mmol/L (21-32); Chloride 104.0 mmol/L (98-107); Creatinine Clr Calc Pharmacy 28.6 ml/min; Glucose 99.0 mg/dl (70-99(Fasting)); Potassium 4.5 mmol/L (3.5-5.1); Sodium 144.0 mmol/L (136-145)
--- NOTE | 2025-05-09 08:15 | History & Physical Bridge Note ---
Date of Service May 09, 2025 History & Physical Bridge Note I have examined the patient, reviewed the History & Physical and in the interval since the performance of the History & Physical I have noted the following changes of clinical significance: no changes noted 79-year-old female with a history of coronary disease, prior inferior OK status post PCI. Had a syncopal episode followed by stress testing which was suggestive of RCA territory infarct and significant tracy-infarct ischemia. Also with diaphragmatic attenuation and anterior soft tissue chest attenuation (status post bilateral mastectomy). Patient is referred by Dr. Peacock for definitive evaluation by coronary angiography given her symptoms, history, and findings on recent Lexiscan stress MPI. Plan diagnostic coronary angiography plus or minus PCI as indicated.
--- NOTE | 2025-05-09 08:26 | Pre Anesthesia Assessment ---
Date of Service May 09, 2025 Pre Sedation Assessment Vital Signs Temp Pulse Resp BP Pulse Ox O2 Del Method 05/09/25 07:16 36.8 C 65 16 209/71 H 95 Room Air Pre-Sedation Airway Assessment Smoking Status: Never smoker Hx Sleep Apnea: No Short, Thick Neck: No Thyromental Distance: > or= 3.5 Finger Breadths Oral Cavity: + Dentures Mallampati Class: III ASA: ASA3 NPO Status Date of Last Intake of Fluids: 05/09/25 Time of Last Intake of Fluids: 05:30 Last Oral Intake of Fluids Comment: sip with meds Date of Last Intake of Solid Food: 05/08/25 Notes The planned sedation has been discussed with the patient. Informed Consent was obtained. I have identified the patient, determined the appropriateness of sedation and have assessed the patient immediately prior to the procedure. All medicine(s) and interventions are by my order.
[2025-05-09] MEDS: niCARdipine 2,000 MCG/20 ML SYR ONE (08:50)
[2025-05-09] MEDS: NITROGLYCERIN/D5W 100MCG/ML 20ML SYR ONE (08:50)
[2025-05-09] MEDS: OPTIRAY 350 ONE (09:23)
[2025-05-09] MEDS: HEPARIN (PORCINE) 1000 UNIT/ML 10 ML (CATH LAB USE ONLY) ONE ×3 (09:24→10:03)
[2025-05-09] MEDS: MIDAZOLAM HCL 1 MG/ML 2ML VIAL ONE (09:24)
[2025-05-09] MEDS ORDERED: Heparin IV Adult Wt-Based Standard w/ INITIAL Bolus Protocol IV STA (09:32)
[2025-05-09] MEDS ORDERED: NITROGLYCERIN SL 0.4 MG/TAB TAB SL PRN (09:32)
--- NOTE | 2025-05-09 09:32 | Post Anesthesia Assessment ---
Date of Service May 09, 2025 Post Sedation Assessment Vital Signs Temp Pulse Resp BP Pulse Ox O2 Del Method 05/09/25 07:16 36.8 C 65 16 209/71 H 95 Room Air Recovery Score Activity: Moves 4 extremities Respiration: Deep Breath/Cough Circulation: +/-20% PreAnes Value Consciousness: Fully Awake Oxygen Saturation: > 92% On Room Air Discharge Sedation Level of Care: Fast Track Phase II Post Sedation Plan On clinical assessment, the patient appears to have tolerated the sedation without complications. Patient is recovering as anticipated. Patient will continue to be monitored by nursing and may be discharged when sedation discharge criteria are met per below protocol. Upon Completions of procedure up to 15 minutes continue every 5 minute vital signs and the P.A.R. score; then discharge to a Phase I or Fast Track to Phase II per the following guidelines: * Discharge Patient to appropriate Phase II area if PAR is 8 or greater or return to pre- procedure baseline. The post - procedure orders will be as directed. * If PAR score is less than 8 or not return to pre-procedure baseline then patient will follow Phase I monitoring till PAR is reached for Phase II. The Phase I may be done in procedure room or may call to secure a Phase I area. * If naloxone or flumazenil are used for reversal, hold in Phase I for continued monitoring from when last reversal dose was given for a minimum of 60 minutes or longer pending the nurse and/or physician discretion of patient condition before discharge to Phase II. Please call the Sedation Physician to re-evaluate and complete post-note for discharge to Phase II area. Do NOT discharge from procedure sedation or Phase 1 until post- sedation evaluation note is complete by procedure /sedation MD Sedation Discharge Instructions to be given to the patient at discharge to home. [facility] Procedure Codes (Charges) Indication for Procedure Indication for procedure: angina ALVARADO abnormal stress test Sedation/Anesthesia Procedure 1: Sedation/Anesthesia: 21768 Mod Sedation by the same physician;Init15 Min Child Age 5 & Up (Initial 15 minutes, start time 0854) Total Sedation Time (minutes): 32 Procedure 2: Sedation/Anesthesia: 15250 Mod Sedation by the same physician; Ea [id number] Minutes (Additional 17 minutes, end time 0926) Total Sedation Time (minutes): 32
[2025-05-09] MEDS ORDERED: ONDANSETRON INJ 2 MG/ML 2 ML VIAL IV PRN (09:46)
[2025-05-09] MEDS ORDERED: POLYETHYLENE (MIRALAX) 17 GM PACK PO PRN (09:46)
[2025-05-09] MEDS: HEPARIN 25000 UNIT/500 ML D5W 25,000 UNITS/500 ML BAG IV SCH (10:01)
[2025-05-09] MEDS: HEPARIN 25000 UNIT/500 ML D5W IV ONE ×2 (10:02→10:03)
[2025-05-09] MEDS: HEPARIN SOD (PORCINE) 1000 UNIT/ML IV ONE (10:02)
[2025-05-09] MEDS: ONDANSETRON INJ 2 MG/ML 2 ML VIAL ONE (10:05)
[2025-05-09] MEDS: ATROPINE SULFATE 0.1 MG/ML 10ML SYR IV ONE (10:05)
--- NOTE | 2025-05-09 10:14 | Hospitalist Consultation ---
Date of Consultation May 09, 2025 Assessment & Plan (1) CAD (coronary artery disease): (2) Abnormal nuclear stress test: (3) S/P cardiac catheterization: Patient is a 79y/o F with PMHx significant for DMII with diabetic nephropathy/peripheral circulatory disorder/diabetic retinopathy, acquired hypot hyroidism, HLD, HTN [not on ACEi/ARB due to history of hyperkalemia], mild LVH, asthma, COPD, nocturnal hypoxia on supplemental O2 via NC, history of inferior AR, CAD s/p PCI with PASTOR x 3 to RCA in 2015, cerebral vascular disease with history of CVA x 2 in 2015 and 2019, chronic diastolic CHF, chronic atypical chest pain, right carotid artery stenosis s/p thromboendarterectomy in 2019, rest pain of BLE due to atherosclerosis, pulmonary HTN, atrial fibrillation, Crohn's disease, scleroderma, CKD stage IV, persistent proteinuria, mood disorder and history of breast CA s/p bilateral mastectomies who is being seen in consultation for routine medical management s/p cardiac catheterization performed by Dr. Caba. Follows with Dr. Peacock of [facility] cardiology. Recent abnormal nuclear stress testin g on 03/30/25: inferior infarct with tracy-infarction ischemia. Referred by Dr. Peacock for cardiac catheterization today. Case discussed with Dr. Caba. Found to have extensive LAD disease during the cardiac catheterization. Will require transfer to a tertiary care facility for CABG evaluation. Continue IV heparin, DAPT per Dr. Caba (4) Acute hypotension: Initially hypotensive down to 70s/50s s/p cardiac catheterization -Had received IV hydralazine and IV nifedipine 2/2 intraprocedural HTN -Urgent CTAP completed: no evidence of active hemorrhaging BP improved to 112/66 at time of our evaluation s/p IVF Holding all antihypertensives for now, except for BB -Routine BP monitoring -Resume antihypertensives as able (5) Chronic diastolic CHF (congestive heart failure): Hold Lasix for now Reassess volume status in AM -Resume Lasix as able (6) CKD (chronic kidney disease), stage IV: Baseline Cr 1.5-2 since Oct 2024 per OP chart review F/w [facility] nephro Cr appears stable on labs this AM Continue to monitor Avoid nephrotoxic agents as able (7) DM type 2 (diabetes mellitus, type 2): Hgb A1c 8.1% 2mo ago Hold home regimen Basal/bolus regimen while inpt BSG checks ACHS Appreciate glycemic pharm assistance (8) COPD (chronic obstructive pulmonary disease): (9) Nocturnal hypoxia: Uses 2L NC w/ exertion during day, 3L NC HS (10) Crohn's disease: Continue CellCept Other chronic medical conditions: GERD - Continue PPI Diabetic neuropathy - Continue gabapentin (reduced dose 2/2 renal fx per pharm recs) Hypothyroidism - Continue levothyroxine, check TSH in AM H/o seizures - Continue Lamictal, check Lamictal level in AM GERD - Continue PPI DVT Prophylaxis: IV heparin Code Status: FULL CODE Disposition: D/c planning as per primary service --> pt awaiting transfer to tertiary care facility for CABG eval per d/w Dr. Caba Thank you for this consultation. We will follow the patient with you during their hospital stay. You can reach a member of the [facility]ist Team 13/04 via [employer]. Patient seen in collaboration with Dr. Mckinnon. Please see addendum. I spent a total of 50 minutes coordinating, documenting, and providing care for this patient excluding time spent in the performance of separately billed services or time spent by another provider/QHP. This included personally reviewing all current laboratories and imaging studies, medical reconciliation, outpatient chart review and discussion with specialists. This chart was completed in part utilizing Speech Voice Recognition Software. Grammatical errors, random word insertions, pronoun errors, and incomplete sentences are an occasional consequence of this system due to software limitations, ambient noise, and hardware issues. Any formal questions or concerns about the content, text, or information contained within the body of this dictation should be directly addressed to the provider for clarification. Supervising Physician Co-Signing Physician Notes Pt seen and examined by me, care coordinated w/ Nargis Martino PA-C, pls refer to her note above for further detail. Pt is a 79 yo F with DMII (on insulin, last A1c 8.1% in February,) with diabetic nephropathy/peripheral circulatory disorder, acquired hypothyroidism, HLD, HTN, asthma, COPD, nocturnal hypoxia on supplemental O2 via NC, history of inferior AR, CAD s/p PCI with PASTOR x 3 to RCA in 2015, hx of CVA x 2 in 2015 and 2019, chronic diastolic CHF, chronic atypical chest pain, right carotid artery stenosis s/p thromboendarterectomy in 2020, pulmonary HTN, atrial fibrillation, Crohn's disease, scleroderma, CKD stage IV, mood disorder and hx of breast CA s/p bilateral mastectomies who is being seen in consultation for medical management s/p cardiac catheterization performed by Dr. Caba today (05/09/2025). Pt follows with Dr. Peacock of [facility] cardiology. Recent abnormal nuclear stress testing on 03/30/25: inferior infarct with tracy-infarction ischemia. Referred by Dr. Peacock for cardiac catheterization. Discussed over the phone w/ Dr. Caba after the cardiac cath, and found sign. left main disease with plan to transfer to tertiary center for further evaluation and care. Pt was seen in area, lying in bed in NAD, feeling well overall but little dizzy. Per RN her BP dropped (after also getting hydralazine earlier), currently BP improved. Given the bp drop though CT abdomen w/o con was ordered by chainstitch elastic attacher. Pt is awake, alert, oriented , confirms the plan for transfer to tertiary center. Denies any chest pain.heart sounds regular, lung sound decreased, no wheezing noted. Denies any significant abd. pain but reports mild nausea. Abdomen is soft on palp. She is able to move extremities. LE w/o edema. Skin is warm and dry. MD Pratibha History of Present Illness Reason for Consultation: Medical management Requesting Physician: Rhett Caba MD, PhD Attending Physician: Rhett Caba MD, PhD History of Present Illness Patient is a 79y/o F with PMHx significant for DMII with diabetic nephropathy/peripheral circulatory disorder/diabetic retinopathy, acquired hy pothyroidism, HLD, HTN [not on ACEi/ARB due to history of hyperkalemia], mild LVH, asthma, COPD, nocturnal hypoxia on supplemental O2 via NC, history of inferior AR, CAD s/p PCI with PASTOR x 3 to RCA in 2015, cerebral vascular disease with history of CVA x 2 in 2015 and 2019, chronic diastolic CHF, chronic atypical chest pain, right carotid artery stenosis s/p thromboendarterectomy in 2020, rest pain of BLE due to atherosclerosis, pulmonary HTN, atrial fibrillation, Crohn's disease, scleroderma, CKD stage IV, persistent proteinuria, mood disorder and history of breast CA s/p bilateral mastectomies who is being seen in consultation for routine medical management s/p cardiac catheterization performed by Dr. Caba. Follows with Dr. Peacock of [facility] cardiology. Recent abnormal nuclear stress jocelyn ting on 03/30/25: inferior infarct with tracy-infarction ischemia. Referred by Dr. Peacock for cardiac catheterization today. Case discussed with Dr. Caba. Found to have "left main disease" during the cardiac catheterization. Will require transfer to a tertiary care facility for CABG evaluation. Patient seen and evaluated in the cardiac pavilion holding suite with Dr. Mckinnon s/p cardiac catheterization. Per discussion with nursing staff, patient was initially hypotensive down to the 70s/50s following the procedure. Had received IV hydralazine and IV nicardipine during the cardiac catheterization due to intraprocedural hypertension. Had been urgently taken down for CTAP to evaluate for any active hemorrhaging which was negative. BP improved at the time of our evaluation to 112/66 with administration of IVF. Patient still experiencing some faint dizziness but this has greatly improved overall. Denies any CP or SOB. Endorses a dry mouth but otherwise denies any further complaints. Allergies Allergy/AdvReac Type Severity Reaction Status Date / Time Cephalosporins Allergy Intermediate RASH Verified 05/09/25 07:23 paroxetine Allergy Intermediate RASH Verified 05/09/25 07:23 Penicillins Allergy Intermediate RASH Verified 05/09/25 07:23 latex Allergy Mild SWELLING Verified 05/09/25 07:23 alendronate sodium Allergy Unknown RASH Verified 05/09/25 07:23 Benzodiazepines Allergy Unknown ATIVAN IS Verified 05/09/25 07:23 OK guaifenesin Allergy Unknown Unknown Verified 05/09/25 07:23 imipramine Allergy Unknown Unknown Verified 05/09/25 07:23 Macrolide Antibiotics Allergy Unknown ` Verified 05/09/25 07:23 phenylephrine Allergy Unknown Unknown Verified 05/09/25 07:23 phenylpropanolamine Allergy Unknown Unknown Verified 05/09/25 07:23 protirelin Allergy Unknown Unknown Verified 05/09/25 07:23 trazodone Allergy Unknown NIGHTMARES Verified 05/09/25 07:23 valsartan Allergy Unknown Unknown Verified 05/09/25 07:23 orange Allergy Unknown Verified 05/09/25 07:23 strawberry Allergy Unknown Verified 05/09/25 07:23 adhesive AdvReac Intermediate blisters Verified 05/09/25 07:23 on skin Sulfa (Sulfonamide AdvReac Mild VOMITING Verified 05/09/25 07:23 Antibiotics) Home Medications Medication Instructions Recorded Confirmed Type atorvastatin 80 mg tablet 80 mg PO DAILY #30 tabs 06/07/19 05/09/25 History gabapentin 300 mg capsule 300 mg PO TID 06/07/19 05/09/25 History insulin aspart U-100 100 unit/mL 0 - 8 sliding scale dose subcut 06/07/19 05/09/25 History (3 mL) subcutaneous pen USEASDIRECTD #2 mL insulin glargine 100 unit/mL (3 64 unit subcut USEASDIRECTD #1 mL 06/07/19 05/09/25 History mL) subcutaneous pen latanoprost 0.005 % eye drops 1 drops ophthalmic (eye) DAILY 06/07/19 05/09/25 History aspirin 81 mg tablet,delayed 81 mg PO DAILY 08/15/19 05/09/25 History release clopidogrel 75 mg tablet 75 mg PO DAILY 08/15/19 05/09/25 History repaglinide 1 mg tablet 4 mg PO TID 02/24/22 05/09/25 History nitroglycerin 0.4 mg sublingual 0.4 mg sublingual Q5M PRN chest 03/06/23 05/09/25 Rx tablet pain #20 tabs albuterol sulfate 90 mcg/actuation 1 inh inhalation Q4H PRN 09/10/23 05/09/25 History aerosol inhaler SOB/Wheezing cetirizine 10 mg tablet 5 mg PO HS 09/10/23 05/09/25 History citalopram 10 mg tablet 10 mg PO DAILY 09/10/23 05/09/25 History ergocalciferol (vitamin D2) 1.25 mcg PO .WKLY 09/10/23 05/09/25 History lamotrigine 25 mg tablet 50 - 100 mg PO BID PRN other 09/10/23 05/09/25 History levothyroxine 75 mcg capsule 75 mcg PO DAILY 09/10/23 05/09/25 History mecobalamin (vitamin B12) 500 mcg 500 mcg PO DAILY 09/10/23 05/09/25 History chewable tablet mycophenolate mofetil 500 mg 500 mg PO DAILY 09/10/23 05/09/25 History tablet (CellCept) pantoprazole 40 mg tablet,delayed 40 mg PO DAILY 09/10/23 05/09/25 History release polyethylene glycol 3350 17 17 g PO DAILY 09/10/23 05/09/25 History gram/dose oral powder (Miralax) sennosides 8.6 mg capsule (senna) 8.6 mg PO DAILY PRN Constipation 09/10/23 History amlodipine 5 mg tablet 5 mg PO DAILY #30 tabs 01/08/24 05/09/25 Rx metoprolol succinate 25 mg 25 mg PO DAILY #30 tabs 01/08/24 05/09/25 Rx tablet,extended release 24 hr furosemide 40 mg tablet 40 mg PO DAILY 12/19/24 05/09/25 History sitagliptin phosphate 25 mg tablet 25 mg PO DAILY 04/26/25 05/09/25 History (Januvia) Patient History Medical History (Updated 05/09/25 @ 13:14 by Uzma Martino PA-C) Depression Chronic back pain Hypothyroidism Alzheimer disease Diabetes CAD (coronary artery disease) Surgical History (Updated 05/09/25 @ 10:16 by Uzma Martino PA-C) Stented coronary artery Family History Father Heart disease Brother Heart disease Mother Heart disease Social History Smoking Status: Never smoker Hx Alcohol Use: No Hx Substance Use: No Preferred Language: [place] Communication Ability: Effective Exploration Driller Required: No Beliefs That Will Affect Care: None Current Living Situation: Spouse Feels Safe at Home: Yes Assistive Devices: Glasses Review of Systems Review of Systems: At least ten systems reviewed and negative, except as noted in the HPI. Physical Exam Physical Exam: Please refer to Dr. Mckinnon's addendum for physical examination findings. Results & Data Results & Data Vital Signs (Past 12 Hours) Vital Signs Temp Pulse Resp BP Pulse Ox O2 Del Method 05/09/25 09:45 63 18 135/48 L 95 Room Air 05/09/25 07:16 36.8 C 65 16 209/71 H 95 Room Air Laboratory Results Short CBC 05/09/25 Range/Units 07:27 WBC 14.96 H (4.8-10.8) K/ul Hgb 12.0 (12.0-16.0) g/dl Hct 37.0 (37.0-47.0) % Plt Count 312 (130-400) K/uL BMP 05/09/25 07:27 Sodium 144 Potassium 4.5 Chloride 104 Carbon Dioxide 32 BUN 21 Creatinine 1.54 H Glucose 99 Calcium 9.3 Diagnostic Findings Abdomen/Pelvis CTA 05/09/25 10:23 CT OF THE ABDOMEN AND PELVIS WITHOUT CONTRAST AND CT ANGIOGRAPHY OF THE ABDOMEN AND PELVIS CLINICAL HISTORY: Evaluate retroperitoneal bleeding post catheterization. COMPARISON STUDY: CT of the abdomen and pelvis April 16, 2016. Renal ultrasound June 29, 2018. TECHNIQUE: Unenhanced and arterial phase imaging of the abdomen and pelvis was performed. Intravenous injection 112 cc of Optiray 320 IV was uneventful. Sagittal and coronal reformats were viewed as well as maximal intensity projections on an independent 3-D workstation. A dose lowering technique was utilized adhering to the principles of ALARA. FINDINGS: The heart is moderately enlarged. No pneumatosis, free air or portal venous gas is present. There is extensive aortoiliac atherosclerotic plaque. No aneurysm within the abdomen or pelvis is identified. There is moderate stenosis at the origin of the celiac axis, superior mesenteric artery and the left renal artery. The bilateral common iliac, internal iliac, external iliac and common femoral arteries are patent. There is moderate stenosis of the right common femoral artery. Visualized portions of the right superficial femoral artery are patent. Extensive plaque within this vessel. There is mild stranding within the right groin consistent with a small amount of hemorrhage. No large hematoma is present. There is no pseudoaneurysm. There is no retroperitoneal hematoma. Biliary ductal dilatation is likely related to cholecystectomy. There are no hepatic lesions. Spleen, adrenal glands and pancreas are unremarkable. There is moderate to severe left renal cortical thinning and scarring. There is mild right renal cortical thinning. There is no hydronephrosis. Incidental note is made of excreted contrast from recent catheterization. There is no evidence for a bowel obstruction. Colonic diverticulosis. Evidence for acute diverticulitis. Lower thoracic spine decompression and fusion is incidentally noted. IMPRESSION: 1. No retroperitoneal hematoma. No pseudoaneurysm. Mild stranding within the right groin consistent with a small amount of hemorrhage. 2. Extensive aortoiliac atherosclerotic plaque. Moderate stenosis at the origins of the celiac axis, superior mesenteric artery and left renal artery. 3. Moderate severe left renal cortical thinning and scarring. 4. Colonic diverticulosis. ACT 112: Negative or not required by law. Electronically signed by: Marcelino Prieto M.D. 05/09/2025 11:21 AM Medications Administered Heparin Sodium/Dextrose (Heparin 63555 Unit/500 Ml D5w) 25,000 units in 500 mls @ 21 mls/hr IV .[id number] [facility]; Protocol Stop: 06/08/25 09:59 Last Admin: 05/09/25 10:01 Dose: 1,050 units/hr, 21 mls/hr Documented By: [id number] Co-signed By: ZACH Discontinued Medications Atropine Sulfate (Atropine Sulfate 0.1 Mg/Ml 10ml Syr) Confirm Administered Dose 1 mg IV .STK-MED ONE Stop: 05/09/25 10:03 Last Admin: 05/09/25 10:05 Dose: 0.5 mg Documented By: KARLI Fentanyl Citrate (Fentanyl Citrate Pf 100 Mcg/2 Ml Vial) Confirm Administered Dose 100 mcg .ROUTE .STK-MED ONE Stop: 05/09/25 07:56 Last Increment: 05/09/25 09:23 Dose: 50 mcg Documented By: ZACH Heparin Sodium (Porcine) (Heparin (Porcine) 1000 Unit/Ml 10 Ml (Photo Engraver Use Only)) Confirm Administered Dose 10,000 units .ROUTE .STK-MED ONE Stop: 05/09/25 07:55 Last Admin: 05/09/25 09:24 Dose: Not Given Documented By: ZACH Heparin Sodium (Porcine) (Heparin Sod (Porcine) 1000 Unit/Ml) 5,000 units IV NOW ONE Stop: 05/09/25 09:53 Last Admin: 05/09/25 10:02 Dose: 5,000 units Documented By: [id number] Co-signed By: ZACH Heparin Sodium (Porcine) (Heparin (Porcine) 1000 Unit/Ml 10 Ml (Photo Engraver Use Only)) Confirm Administered Dose 10,000 units .ROUTE .STK-MED ONE Stop: 05/09/25 09:42 Last Admin: 05/09/25 10:03 Dose: Not Given Documented By: [id number] Heparin Sodium (Porcine) (Heparin (Porcine) 1000 Unit/Ml 10 Ml (Photo Engraver Use Only)) Confirm Administered Dose 10,000 units .ROUTE .STK-MED ONE Stop: 05/09/25 09:51 Last Admin: 05/09/25 10:02 Dose: Not Given Documented By: [id number] Heparin Sodium/Dextrose (Heparin 07317 Unit/500 Ml D5w) Confirm Administered Dose 25,000 units IV .STK-MED ONE Stop: 05/09/25 09:42 Last Admin: 05/09/25 10:03 Dose: Not Given Documented By: [id number] Heparin Sodium/Dextrose (Heparin 71725 Unit/500 Ml D5w) Confirm Administered Dose 25,000 units IV .STK-MED ONE Stop: 05/09/25 09:43 Last Admin: 05/09/25 10:02 Dose: Not Given Documented By: [id number] Heparin Sodium/Sodium Chloride (Heparin In Nss Infusion 1000 Unit/500 Ml (2 U/Ml) Bag) Confirm Administered Dose 3,000 units IV .STK-MED ONE Stop: 05/09/25 07:56 Last Admin: 05/09/25 08:49 Dose: 3,000 units Documented By: KAMRAN Hydralazine HCl (Hydralazine Hcl 20 Mg/Ml Vial) Confirm Administered Dose 20 mg .ROUTE .STK-MED ONE Stop: 05/09/25 09:13 Last Admin: 05/09/25 09:26 Dose: 20 mg Documented By: ZACH Ioversol (Optiray 350) Confirm Administered Dose 1 ml .ROUTE .STK-MED ONE Stop: 05/09/25 07:56 Last Admin: 05/09/25 09:23 Dose: 95 ml Documented By: KAMRAN Ioversol (Optiray 320 125ml) 112 ml IV ONCE ONE Stop: 05/09/25 10:47 Last Admin: 05/09/25 10:46 Dose: 112 ml Documented By: DAVID Midazolam HCl (Midazolam Hcl 1 Mg/Ml 2ml Vial) Confirm Administered Dose 2 mg .ROUTE .STK-MED ONE Stop: 05/09/25 07:54 Last Admin: 05/09/25 09:24 Dose: 2 mg Documented By: ZACH Nicardipine HCl (Nicardipine 2,000 Mcg/20 Ml Syr) Confirm Administered Dose 2,000 mcg .ROUTE .STK-MED ONE Stop: 05/09/25 07:56 Last Admin: 05/09/25 08:50 Dose: 2,000 mcg Documented By: KAMRAN Nitroglycerin/Dextrose (Nitroglycerin/D5w 100mcg/Ml 20ml Syr) Confirm Administered Dose 2,000 mcg .ROUTE .[place] Tea ONE Stop: 05/09/25 07:56 Last Admin: 05/09/25 08:50 Dose: 2,000 mcg Documented By: KAMRAN Ondansetron HCl (Ondansetron Inj 2 Mg/Ml 2 Ml Vial) Confirm Administered Dose 4 mg .ROUTE .mSellerMED ONE Stop: 05/09/25 10:02 Last Admin: 05/09/25 10:05 Dose: 4 mg Documented By: KARLI (1) CAD (coronary artery disease) Associated angina: without angina Coronary Disease-Associated Artery/Lesion type: [place] artery [place] vs. transplanted heart: [place] heart Qualified Code(s): I25.10 - Atherosclerotic heart disease of [place] coronary artery without angina pectoris (7) DM type 2 (diabetes mellitus, type 2) Chronic kidney disease stage: stage 3 (moderate) Diabetes mellitus complication detail: with chronic kidney disease Diabetes mellitus complication status: with kidney complications Diabetes mellitus director long term care insulin use: with [facility] use Qualified Code(s): E11.22 - Type 2 diabetes mellitus with diabetic chronic kidney disease; N18.3 - Chronic kidney disease, stage 3 (moderate); Z79.4 - shelter (current) use of insulin (8) COPD (chronic obstructive pulmonary disease) COPD type: unspecified COPD Qualified Code(s): J44.9 - Chronic obstructive pulmonary disease, unspecified (10) Crohn's disease Digestive disease complication type: without complication Gastrointestinal tract location: unspecified location Qualified Code(s): K50.90 - Crohn's disease, unspecified, without complications
[2025-05-09] MEDS ORDERED: PHARMACY GLYCEMIC MGMT CONSULT PRN (10:19)
[2025-05-09] MEDS ORDERED: GLUCAGON FOR INJ 1 MG VIAL SQ PRN (10:19)
[2025-05-09] MEDS ORDERED: GLUCOSE 10 TAB/TUBE PO PRN (10:19)
[2025-05-09] MEDS ORDERED: GLUCOSE 40% GEL 15 GM TUBE PO PRN (10:19)
[2025-05-09] MEDS ORDERED: DEXTROSE 50% 50 ML SYRINGE IV PRN (10:19)
[2025-05-09] MEDS: OPTIRAY 320 125ml IV ONE (10:46)
--- NOTE | 2025-05-09 11:23 | CT Scan Report ---
CT OF THE ABDOMEN AND PELVIS WITHOUT CONTRAST AND CT ANGIOGRAPHY OF THE ABDOMEN AND PELVIS CLINICAL HISTORY: Evaluate retroperitoneal bleeding post catheterization. COMPARISON STUDY: CT of the abdomen and pelvis April 16, 2016. Renal ultrasound June 29, 2018. TECHNIQUE: Unenhanced and arterial phase imaging of the abdomen and pelvis was performed. Intravenous injection 112 cc of Optiray 320 IV was uneventful. Sagittal and coronal reformats were viewed as wel l as maximal intensity projections on an independent 3-D workstation. A dose lowering technique was u tilized adhering to the principles of ALARA. FINDINGS: The heart is moderately enlarged. No pneumatosis, free air or portal venous gas is present. There is extensive aortoiliac atherosclerotic plaque. No aneurysm within the abdomen or pelvis is id entified. There is moderate stenosis at the origin of the celiac axis, superior mesenteric artery and the left renal artery. The bilateral common iliac, internal iliac, external iliac and common femoral arteries are patent. There is moderate stenosis of the right common femoral artery. Visualized porti ons of the right superficial femoral artery are patent. Extensive plaque within this vessel. There is mild stranding within the right groin consistent with a small amount of hemorrhage. No large hematom a is present. There is no pseudoaneurysm. There is no retroperitoneal hematoma. Biliary ductal dilata tion is likely related to cholecystectomy. There are no hepatic lesions. Spleen, adrenal glands and p ancreas are unremarkable. There is moderate to severe left renal cortical thinning and scarring. Ther e is mild right renal cortical thinning. There is no hydronephrosis. Incidental note is made of excre yehuda contrast from recent catheterization. There is no evidence for a bowel obstruction. Colonic diver ticulosis. Evidence for acute diverticulitis. Lower thoracic spine decompression and fusion is incide ntally noted. IMPRESSION: 1. No retroperitoneal hematoma. No pseudoaneurysm. Mild stranding within the right groin consistent w ith a small amount of hemorrhage. 2. Extensive aortoiliac atherosclerotic plaque. Moderate stenosis at the origins of the celiac axis, superior mesenteric artery and left renal artery. 3. Moderate severe left renal cortical thinning and scarring. 4. Colonic diverticulosis. ACT 112: Negative or not required by law. Electronically signed by: Marcelino Prieto M.D. 05/09/2025 11:21 AM
[2025-05-09] MEDS: SODIUM CHLORIDE 0.9% 1,000 ML IV SCH (13:00)
[2025-05-09] MEDS: ASPIRIN 81 MG ECTAB PO SCH (14:17)
[2025-05-09] MEDS: METOPROLOL SUCC 25MG EXT REL TAB PO SCH (14:18)
[2025-05-09] MEDS: ATORVASTATIN 40 MG TAB PO SCH (14:18)
[2025-05-09] MEDS: INSULIN ASPART PER UNIT CHARGE SC SCH (14:18)
--- NOTE | 2025-05-09 15:23 | Pharmacy Report ---
Pharmacy Glycemic Short Note 2 - Date of Service May 09, 2025 - Glycemic Short BSG Results (Last 24 hours): 05/09/25 05/09/25 07:27 12:29 Glucose 99 POC Glucose 103 H OUTPATIENT ANTIDIABETIC REGIMEN: * Insulin glargine 64 units daily. Per RN (Justen) - never misses doses. Last took half dose 32 units this AM (05/09) * Insulin aspart sliding scale, 0-8 units per dose ASSESSMENT: * 79 yo F with T2DM with anticipated admission for cardiac cath, now found to have multi-vessel disease with hospitalist note indicating possible transfer to a tertiary care facility for CABG * Suspect much of her outpatient basal dose covers prandial needs as well * Will not give additional basal insulin at this time. * Will order moderate stress Novolog ACHS (since patient only took half of her usual basal dose and therefore may require some supplemental insulin) PLAN FOR INPATIENT GLYCEMIC CONTROL: * Basal insulin * Nothing additional for now. Re-evaluate 8/20 AM if still here. * Bolus insulin * NovoLog per scale ACHS or Q6hrs while NPO * Goal Range: Low 110 mg/dL - High 140 mg/dL * Correction Factor: 35 mg/dL/unit * Nutritional / Prandial insulin per carb ratio of 1 unit per 12 grams CHO consumed
--- NOTE | 2025-05-09 17:19 | XCELERA ---
[id number]
[2025-05-09 19:10] LABS: ANTI-Xa, UFH(UnfractionatedHep 1.14 IU/ml (0.3-0.7)
[2025-05-09] MEDS: GABAPENTIN 300 MG CAP PO SCH (20:33)
[2025-05-09] MEDS: CETIRIZINE HCL 10 MG TABLET PO SCH (20:33)
[2025-05-09] MEDS: ACETAMINOPHEN 325 MG TAB PO PRN (20:33)
[2025-05-09] MEDS: lamoTRIgine 100 MG TAB PO SCH (20:35)
[2025-05-09 20:40] LABS: ANTI-Xa, UFH(UnfractionatedHep 0.90 IU/ml (0.3-0.7)
[2025-05-09] MEDS ORDERED: LANTUS PER UNIT CHARGE SQ SCH (21:00)
[2025-05-09 21:54] LABS: ANTI-Xa, UFH(UnfractionatedHep 0.43 IU/ml (0.3-0.7)
[2025-05-10 05:19] LABS: Alanine Aminotransferase 12.0 U/L (7-52); Albumin Globulin Ratio 1.7 (0.9-2); Alkaline Phosphatase 59.0 U/L (34-104); Anion Gap 8.0 (3-11); Bilirubin,Total 0.3 mg/dl (0.2-1.0); Blood Urea Nitrogen 20.0 mg/dl (6-23); Calcium 7.8 mg/dl (8.6-10.3); Carbon Dioxide 26.0 mmol/L (21-32); Chloride 107.0 mmol/L (98-107); Creatinine Clr Calc Pharmacy 26.0 ml/min; Globulin 2.1 gm/dl (2.5-4.0); Glucose 47.0 mg/dl (70-99(Fasting)); Magnesium 1.8 mg/dl (1.7-2.4); Potassium 4.0 mmol/L (3.5-5.1); Sodium 141.0 mmol/L (136-145); Total Protein 5.6 gm/dl (6.0-8.3)
[2025-05-10] MEDS: CARBOHYDRATES FOR HYPOGLYCEMIA PO PRN (05:26)
[2025-05-10 05:28] LABS: Hematocrit (blood only) 31.9 % (37.0-47.0); Hemoglobin 10.1 g/dl (12.0-16.0); Mean Corpuscular Hemoglobin 29.5 pg (25.0-34.0); Mean Corpuscular Volume 93.3 fL (80.0-100.0); Platelet Count 203 K/uL (130-400); RDW Standard Deviation 46.0 fL (36.4-46.3); Red Blood Count 3.42 M/uL (4.20-5.40); White Blood Count 11.32 K/ul (4.8-10.8)
[2025-05-10 05:32] LABS: Thyroid Stimulating Hormone 1.185 uIu/ml (0.300-4.500)
[2025-05-10 05:51] LABS: ANTI-Xa, UFH(UnfractionatedHep 0.49 IU/ml (0.3-0.7)
[2025-05-10] MEDS: LEVOTHYROXINE SODIUM 75 MCG TABLET PO SCH (06:26)
[2025-05-10 07:29] VITALS: TEMP 98.8
[2025-05-10 07:37] LABS: Immature Granulocytes # (auto) 0.04 K/uL (0.01-0.20); Immature Granulocytes % (auto) 0.4 %
[2025-05-10] MEDS: POLYETHYLENE (MIRALAX) 17 GM PACK PO SCH (08:41)
[2025-05-10] MEDS: CITALOPRAM 20 MG TAB PO SCH (08:42)
[2025-05-10] MEDS: lamoTRIgine 25 MG TAB PO SCH (08:42)
[2025-05-10] MEDS: CYANOCOBALAMIN (B-12) 500 MCG TABLET PO SCH (08:43)
--- NOTE | 2025-05-10 08:53 | Cardiac Catheterization ---
ACC Data: Federal Aid Coordinator Cardiac Status Clinical evaluation leading to the procedure CAD Presenation: Positive Stress Test Anginal Classification: CCS III (Dyspnea on exertion) Heart Failure: No Cardiogenic Shock within 24 Hours: No Cardiac Arrest within 24 Hours: No Imaging Studies Past 6 Months: Yes Stress Studies Past 6 Months: Yes Stress Testing w/SPECT MPI: Yes - Positive Coronary Anatomy Dominant: Right Left Main (% Stenosis): Distal (70-80%) LAD (% Stenosis): Ostial (80%) and Proximal (40 to 50% calcified) D1 (% Stenosis): Normal D2 (% Stenosis): Normal Circumflex (% Stenosis): Normal OM1 (% Stenosis): Normal L PL1 (% Stenosis): Normal RCA (% Stenosis): Proximal (Long stent, up to 40-50% ISRS) R PDA (% Stenosis): Normal R PL1 (% Stenosis): Normal Diagnostic Physicians Name: Rhett Caba MD, PhD Closure Device Percutaneous Entry Location: Femoral Closure Device: Angio-Seal Recommendations: CABG Cardiac Cath Procedure Full Procedure Date May 09, 2025 Pre-Procedure Diagnosis Pre-Procedure Diagnosis: Positive Stress Test AUC Score AUC Score: 07 Post-Procedure Diagnosis Post-Procedure Diagnosis: Severe CAD Procedure(s) Performed Procedure(s) Performed: Coronary Angiography and Ultrasound Guided Vascular Access Bond Trader Rhett Caba MD, PhD Estimated Blood Loss Estimated Blood Loss: 5 cc Medication(s) Medication(s): Fentanyl, Hydralazine, Lidocaine 1% and Versed Summary of Findings Brief description: Patient was brought to the cardiac catheterization suite where she was shaved and prepped in a sterile fashion. Sedated using IV Versed and fentanyl. Soft tissues of the right wrist were anesthetized using 2 mL of 1% Xylocaine. Using the ultrasound for guidance we attempted to access the right radial artery. However, we were unsuccessful. We therefore turned our attention to femoral artery access. Soft tissues of the right groin were anesthetized using 10 mL of 1% Xylocaine. Using the ultrasound for guidance (image saved), right femoral artery was acces sed with a 4 [place] micropuncture kit and then this was exchanged over the wire for a 5 [place] femoral artery sheath. All catheters were advanced and exchanged over a 0.035 J-tip wire. Patient was provided IV hydralazine for excessive blood pressure elevation. Left coronary angiography in orthogonal views attempted first with a 5 [place] JL 4.0 diagnostic catheter followed by an 5 [place] EBU 3.5 guide catheter. It was successfully completed using a 5 [place] EBU 3.0 guide catheter. Right coronary angiography in orthogonal views with a 5 [place] JR4 diagnostic catheter. Catheters were removed. Limited right femoral artery angiography was performed to evaluate for closure. Findings were favorable, therefore, the 5 [place] femoral artery sheath was exchanged for a 6 [place] Angio-Seal closure device. This was deployed in the recommended fashion. We obtained immediate hemostasis and the patient remained hemodynamically stable. She was returned to the recovery area in stable condition. This ended the case. Coronary angiography findings: RCA-large caliber and dominant vessel. There is a long stent in the proximal segment. This has up to 40 to 50% in-stent restenosis. The mid and distal RCA have no significant disease. It bifurcates into a large PDA and a large branching posterolateral which also have no significant disease. VNP-[id number] vessel bifurcating into LAD and circumflex. There is a distal eccentric plaque with calcification that is 70 to 80% stenosed. LAD-there is an ostial stenosis of up to 80% which appears to be an extension of the left main disease. Then, the proximal LAD has calcification and 40 to 50% stenosis. It gives a medium caliber D1 without significant disease and then a larger branching D2. The mid and distal LAD have no more than mild luminal irregularities. LCx-this is large caliber and nondominant. Travels in the AV groove. Gives a large OM1 and then terminates distally as a small posterolateral. No more than mild luminal irregularities in the circumflex and its branches. Summary: 1. Severe disease of the distal left main and ostial LAD. Also in-stent restenosis of 40 to 50% in the previously placed RCA stent. Remainder of the vessels without significant disease. 2. Recommend evaluation at tertiary center by "heart team" regarding surgical versus percutaneous revascularization. 3. Guideline directed medical therapy for secondary prevention of coronary disease to include; low-dose aspirin, high intensity statin therapy, beta- merlin, but has not tolerated [place] inhibitor/ARB in the past secondary to hyperkalemia. Hemodynamics Rest Ao:: 192/80 mmHg Final Ao: 184/63 mmHg LV: Not performed Recommendations Recommendations: CABG Radiation Exposure (mGy) 472 mGy, fluoroscopy time 6.5 minutes Contrast (mls) 105 cc Anesthesia 2 mg Versed, 50 mcg fentanyl IV. Start 853, and 925 Procedural Complication(s) None Disposition Federal Aid Coordinator Holding/Recovery I attest to the content of the Intraoperative Record and any orders documented therein. Any exceptions are noted below. [facility] Card Cath Procedure Codes Cardiac Catheterization Procedure 1: Cardiovascular Cath Procedures: 72774 Coronaries Therapeutic Services & Ancillary Procedure 1: Cardiovascular Tx and Anc Procedures: 51743 Ultrasonic Guidance Vascular Access Moderate Sedation Procedure 1: Sedation/Anesthesia: 44077 Mod Sedation by the same physician;Init15 Min Child Age 5 & Up (Initial 15 minutes, start 853) Procedure 2: Sedation/Anesthesia: 09745 Mod Sedation by the same physician; Ea [id number] Minutes (Additional 17 minutes, end 925) PG Care Time/CCT Total # of Minutes Spent Total Time Spent with Patient: Total time spent is greater than 50% in coordination of care (as documented) at patient's floor/unit and/or counseling patient:
[2025-05-10] MEDS ORDERED: CLOPIDOGREL BISULFATE 75 MG TAB PO SCH (09:00)
[2025-05-10] MEDS: LATANOPROST 0.005% OP SOLN 2.5 ML BTL OP SCH (10:17)
--- NOTE | 2025-05-10 11:25 | Hospitalist Progress Note ---
Date of Service May 10, 2025 Assessment & Plan (1) CAD (coronary artery disease): (2) DM type 2 (diabetes mellitus, type 2): (3) Nocturnal hypoxia: (4) COPD (chronic obstructive pulmonary disease): (5) CKD (chronic kidney disease), stage IV: (6) S/P cardiac catheterization: (7) HTN (hypertension): (8) Hypothyroidism: Plan Patient 79-year-old female who had abnormal stress test presented to the hospital yesterday under the service of Dr. Caba to undergo cardiac c atheterization. Cardiac catheterization showed severe LAD disease. Is recommended she be transferred to be evaluated for coronary artery bypass grafting. Patient does have diabetes, hypoglycemic this morning due to poor oral intake last night. Improved with supplementation and eating this morning. Continue outpatient medications Completed discharge paperwork in anticipation of transfer to [facility] for coronary bypass grafting evaluation Family updated at bedside Mar plans of care Continue to monitor glucose and cover with insulin as needed while in the hospital Admission and Anticipated Discharge Date Admission Date: May 09, 2025 Subjective Patient said she had a restless night. She also reports that she did not eat well last evening, this most likely explains her hypoglycemia this morning. Appetite has improved and she did eat some breakfast. Glucose also improved. She denies any chest pain. She states she is chronically on oxygen at night at home and sometimes wears it during the day. Physical Exam Physical Exam: Constitutional: Alert HEENT: Mucous membranes moist. Lungs: Clear to auscultation, decreased, no wheezes rales or rhonchi CV: S1-S2, regular, systolic murmur Abdomen: Soft, nontender, nondistended Extremities: No significant edema Neuro: No focal deficits Psych: Cooperative, normal mood Results & Data Results & Data Vital Signs (Past 12 Hours) Vital Signs Temp Pulse Pulse Resp BP Pulse Ox O2 Del Method 05/10/25 10:18 Nasal Cannula 05/10/25 07:27 37.1 C 71 23 155/57 H 98 Nasal Cannula 05/10/25 07:00 64 05/10/25 03:28 36.6 C 61 18 127/50 L 92 Oxymask 05/09/25 23:29 37.0 C 70 25 H 152/47 H 94 Oxymask O2 Flow Rate 05/10/25 10:18 2 05/10/25 07:27 3 05/10/25 07:00 05/10/25 03:28 3.0 05/09/25 23:29 3.0 Diagnostic Findings Reviewed imaging, laboratory and diagnostic studies. Pertinent findings as below. WBCs 11.3 Hemoglobin 10.1 Electrolytes stable Creatinine 1.69, baseline initial glucose this morning 47, improved to 205 (1) CAD (coronary artery disease) Coronary Disease-Associated Artery/Lesion type: [place] artery [place] vs. transplanted heart: [place] heart Associated angina: without angina Qualified Code(s): I25.10 - Atherosclerotic heart disease of [place] coronary artery without angina pectoris (2) DM type 2 (diabetes mellitus, type 2) Diabetes mellitus senior living insulin use: with water meter installer use Diabetes mellitus complication status: with kidney complications Diabetes mellitus complication detail: with chronic kidney disease Chronic kidney disease stage: stage 3 (moderate) Qualified Code(s): E11.22 - Type 2 diabetes mellitus with diabetic chronic kidney disease; N18.3 - Chronic kidney disease, stage 3 (moderate); Z79.4 - retirement (current) use of insulin (4) COPD (chronic obstructive pulmonary disease) COPD type: unspecified COPD Qualified Code(s): J44.9 - Chronic obstructive pulmonary disease, unspecified (7) HTN (hypertension) Hypertension type: essential hypertension Qualified Code(s): I10 - Essential (primary) hypertension (8) Hypothyroidism Hypothyroidism type: acquired Qualified Code(s): E03.9 - Hypothyroidism, unspecified
[2025-05-10 11:31] VITALS: BP 156/57; PULSE 71; RESP 23; O2SAT 98
--- NOTE | 2025-05-10 11:46 | Pharmacy Report ---
Pharmacy Glycemic Short Note 2 - Date of Service May 10, 2025 - Glycemic Short BSG Results (Last 24 hours): 05/09/25 05/09/25 05/09/25 12:29 16:29 20:33 Glucose POC Glucose 103 H 95 90 05/10/25 05/10/25 05/10/25 04:22 05:42 06:04 Glucose 47 L* POC Glucose 55 L* 62 L* 05/10/25 05/10/25 05/10/25 06:24 07:26 11:19 Glucose POC Glucose 105 H 205 H 178 H OUTPATIENT ANTIDIABETIC REGIMEN: * Insulin glargine 64 units daily. Per RN (Justen) - never misses doses. Last took half dose 32 units this AM (05/09) * Insulin aspart sliding scale, 0-8 units per dose ASSESSMENT: 05/10 * Patient with significant hypoglycemia this AM, likely d/t basal administration prior to arrival. No additional insulin was given yesterday. * BSG 205 mg/dL following 60 gm of CHO for treatment. Loosened correction factor. * BSG 178 mg/dL- will continue with current novolog parameters * Continue to hold basal at this time, will consider low dose of lantus HS if BSGs continue to be stable * Currently awaiting transfer to tertiary facility. 05/09 * 79 yo F with T2DM with anticipated admission for cardiac cath, now found to have multi-vessel disease with hospitalist note indicating possible transfer to a tertiary care facility for CABG * Suspect much of her outpatient basal dose covers prandial needs as well * Will not give additional basal insulin at this time. * Will order moderate stress Novolog ACHS (since patient only took half of her usual basal dose and therefore may require some supplemental insulin) PLAN FOR INPATIENT GLYCEMIC CONTROL: * Basal insulin * Continue to hold for now * Bolus insulin * NovoLog per scale ACHS or Q6hrs while NPO * Goal Range: Low 110 mg/dL - High 140 mg/dL * Correction Factor: 65 mg/dL/unit * Nutritional / Prandial insulin per carb ratio of 1 unit per 12 grams CHO consumed
--- NOTE | 2025-05-10 13:14 | Discharge Summary ---
Date of Service May 10, 2025 Admission HPI Per Admitting Provider On 05/09/2025 the patient underwent outpatient diagnostic coronary angiography for a stress test which demonstrated significant ischemia as well as for symptoms including atypical chest pain and exertional dyspnea. Coronary angiography revealed severe left main and proximal LAD disease. Recommendation was made for her to undergo evaluation at a tertiary center by the Heart Team regarding surgical versus high risk PCI revascularization strategies. Post catheterization patient developed bradycardia and hypotension so was admitted under observation status. Provided IV fluids and underwent CT angiography of the abdomen and pelvis to exclude retroperitoneal hemorrhage. This demonstrated no evidence of retroperitoneal hemorrhage, pseudoaneurysm, or large hematoma. An echocardiogram was also performed which was unchanged from echo of about a year ago. Discharge Data Consultations 05/09/25 09:32 Consult Cardiac Rehabilitation Routine 05/09/25 09:37 Consult Hospitalist Stat 05/10/25 11:00 Burn CD for patient Stat Procedures Performed Operation Date: 05/09/25 08:00 Actual Procedures p Cineradiography w/Routine Exam - Rhett Caba MD, PhD p Cath, Coronaries ONLY (no LV) - Rhett Caba MD, PhD Hospital Course (1) Acute hypotension: Likely secondary to dehydration as well as medications utilized for the cath. During catheterization she was hypertensive. No evidence of bleed. Has been stable with high normal to slightly high blood pressures overnight. She will continue on guideline directed medical therapy for secondary prevention of coronary disease and we will titrate her antihypertensive regimen accordingly as tolerated. (2) S/P cardiac catheterization: After results of catheterization decision was made for referral to tertiary center. Evaluation for CABG versus high risk/complex PCI including left main stenting. The Plavix was held. Last Plavix dose was on 05/08/2025. She remains on guideline directed medical therapy including aspirin 81 mg daily, a atorvastatin, and metoprolol succinate ER. Reported previous intolerance to valsartan although the details are unavailable in our health system. (3) Stented coronary artery: Prior RCA stenting for inferior [place]. This was more than 9 years ago so she does not require dual antiplatelet therapy at this time. She has history of strokes and has been on Plavix and aspirin. She does not need dual antiplatelet therapy for remote stenting although if she is to undergo complex left main and LAD stenting at the tertiary center then this will need to be restarted. Plan Patient has been accepted to the [facility] in [place] cardiology service to undergo heart team evaluation. Coding Level of Care Code 75292 IN/OBS DISCH 30 MIN/LESS Diagnoses Acute hypotension I95.9 S/P cardiac catheterization Z98.890 Stented coronary artery Z95.5
== END 2025-05-10 13:56 | disposition short-term general hospital (02) ==
LOC: CC 07:04 → 2E 07:04
PROC: CLB.CCO (2025-05-09 08:00)